=== PATIENT | female | born 1955 | race Caucasian/White ===

== ENCOUNTER 2023-04-18 13:28 | Outpatient (CLI) | payer OTHER, SELFPAY ==
--- OUTSIDE RECORDS SUMMARY | 2023-04-18 13:31 | XMS_ITS | Continuity of Care Document ---
Author Name Unknown Organization Z [facility] [place] Address [address] [place] [address] Phone Care Team Providers Care Political Aide Name Role Phone Unavailable Unavailable Unavailable Allergies, Adverse Reactions, Alerts Substance Reaction Status Criticality No Known allergies Medications Medication Instructions Dosage Effective Dates (start - stop) Status Comments TIROSINT (unknown strength) Not Available - Active ATENOLOL (unknown strength) Not Available - Active GABAPENTIN (unknown strength) Not Available - Active OXYCODONE HCL (unknown strength) Not Available - Active ALEVE (unknown strength) Not Available - Active Procedures Procedure Date Office/Outpatient Visit,[facility] 2012 X-Ray Exam Lower Spine 2-3 Views 2012 Advance Directives Directive Yes / No Effective Date File Name No Information Encounters Encounter Description Practice Location Reason(s) For Visit Diagnoses Date Provider Providers Copied on Encounter Z [facility], [address] [place] [address], [address], tel:[phone] [facility] [place] No Information 3 No Information Z [facility] [place], [address] [place] [address], [address], tel:[phone] [facility] Hypertension , Unspecified 3 Jose Gregorio. [address] [place] [address], [id number], [place]. tel:[phone] Office/Outpa tient Visit,[facility] Z [facility], [address] [place] [address], [address], tel:[phone] [facility] [place] No Information 3 Mehbod Kristenr. [facility], [address], [place], [place], [id number], [place]. tel:[phone] Referring Provider: Kali Ponce [facility] [address] [facility], [place], [address]. tel:[phone] Family History Family Member Type Diagnosis Age At Onset No Information Payers Payer name Insurance type Covered alliance party ID Authoriza tion(s) [employer] [id number] [facility] [id number] [facility] [id number] Social History Type Description Quantity Date Captured Comments Sex Female Smoking Status No Information Chief Complaint And Reason For Visit No Information Reason For Referral Reason For Referral No Information History Of Present Illness Encounter Date Complaint History Of Prese nt Illness No Information Functional Status Date Functional Assessmen t No Information Instructions Date Instruction Additional Infor mation No Information Assessments Type Assessment Date No Information Patient Care Teams Name Effective Dates (start - stop) Status Members No Information
--- NOTE | 2023-04-18 13:40 | CRLHL7_ITS ---
For Patients: As a result of the Cures Act, medical imaging exams and procedure reports are released immediately into your electronic medical record. You may view this report before your referring provider. If you have questions, please contact your health care provider. BILATERAL SCREENING MAMMOGRAM WITH COMPUTER-AIDED DETECTION AND TOMOSYNTHESIS TECHNIQUE: CC and MLO views were obtained. These mammographic images have been obtained using full-field digital technique. These mammographic images were interpreted with the benefit of computer-aided detection. Breast Tomosynthesis was used in this interpretation. COMPARISON FILM: 01/06/22, 07/07/20, 05/20/19. FINDINGS: There are scattered areas of fibroglandular density IMPRESSION: There is no radiographic evidence for malignancy. ASSESSMENT: BI-RADS Category 1: Negative RECOMMENDATION: Routine screening mammogram in 1 year. A lay language report of this examination will be provided to the patient. Fito Gibson M.D. Diagnostic Radiologist [email or web address] LARA/[email or web address] Transcribed: 3:05 p.jess meeks/Dictated by: Fito Gibson MD @ 04/19/2023 11:34:00 AM (Electronically Signed)
== END 2023-04-18 13:29 | disposition home or self-care (01) ==
LOC: MAMMO 13:29
PROVIDERS: PCP Family Medicine; Visit Provider Family Medicine
DX: Z12.31 Encounter for screening mammogram for malignant neoplasm of breast (principal)
CPT/HCPCS: 77063; 77067

== ENCOUNTER 2024-05-21 07:20 | Outpatient (CLI) | payer OTHER, SELFPAY ==
--- OUTSIDE RECORDS SUMMARY | 2024-05-24 06:00 | XMS_ITS | Clinical Summary ---
Author Organization [facility] Address [place], [place] [address] Care Team Providers Care Drying Rack Changer Name Role Phone Higinio Solano MD Primary Care Provide r Allergies No known active allergies Medications Medication Sig Dispensed Refills Start Date End Date Status atenolol (TENORMIN) 25 mg tablet Take 1 tablet by mouth once daily. 0 10/17/2012 Active levothyroxine (LEVOTHROID) 75 mcg tablet Take 1 tablet by mouth once daily. 0 07/18/2014 Active NYSTOP powder Apply 1 Applicator topically to affected area(s) 2 times daily if needed. 0 01/27/2017 Active traMADol (ULTRAM) 50 mg tablet Take 1 tablet by mouth 3 times daily if needed. 0 02/08/2017 Active cholecalciferol (VITAMIN D-3) 2,000 unit capsule Take 1 capsule by mouth once daily. 0 03/16/2017 Active ascorbic acid, vitamin C, (VITAMIN C) 500 mg tablet Take 1 tablet by mouth once daily. 0 03/16/2017 Active calcium carbonate-vitamin D3, 600 mg-125 unit, (CALCIUM 600 + D) tablet Take 1 tablet by mouth 2 times daily with meals. 0 03/16/2017 Active gabapentin (NEURONTIN) 300 mg capsuleIndications: Lumbar radicular pain Take 1 capsule by mouth at bedtime. 30 capsule 3 03/16/2017 Active ibuprofen (ADVIL; MOTRIN) 800 mg tablet 05/26/2020 Active valACYclovir (VALTREX) 1 gram tablet 05/26/2020 Active Active Problems Problem Noted Date Diagnosed Date Hypothyroidism (acquired) 06/10/2016 Paroxysmal SVT (supraventricular tachycardia) S/P Discectomy L5-S1 12/02/2009 Chronic Lumbar Pain 12/02/2009 Lumbar Radiculopathy 12/02/2009 Degeneration of lumbar or lumbosacral interverte bral disc 05/01/2008 Resolved Problems Problem Noted Date Diagnosed Date Resolved Date Hypothyroidism (acquired) 06/10/2016 Paroxysmal SVT (supraventricular tachycardia) 06/10/20 16 03/16/2017 Social History Tobacco Use Types Packs/Day Years Used Date Smoking Tobacco: Never Smokeless Tobacco: Never Tobacco Cessation:Counseling Given: Yes Alcohol Use Standard Drinks/Week Comments Yes 0 (1 standard drink = 0.6 oz pure alcohol) Special occasions (noted 03/16/2017) Social Connections Answer Date Recorded Frequency of Communication with Friends and Fami ly Not on file 09/25/2021 Financial Resource Strain Answer Date R ecorded Difficulty of Paying Living Expenses Not on file 09/25/2021 Difficulty of Paying Living Expenses Not on file 09/25/2021 Sex and Gender Information Value Date Recorded Sex Assigned at Not on file Gender Identity Not on file Sexual Orientation Not on file Obstetrics History Last Filed Vital Signs Vital Sign Reading Time Taken Comments Blood Pressure 170/81 06/11/2020 9:27 AM CDT Pulse 58 06/11/2020 9:27 AM CDT Temperature 36.8 ??C (98.2 ??F) 06/11/2020 9:27 AM CD T Respiratory Rate - - Oxygen Saturation 99% 06/11/2020 9:27 AM CDT Inhaled Oxygen Concentration - - Weight 117.9 kg (260 lb) 06/11/2020 9:27 AM CDT Height 168.9 cm (5' 6.5) 06/10/2016 10:05 AM CD T Body Mass Index 41.34 06/10/2016 10:05 AM CDT Plan of Treatment Health Maintenance Due Date Last Done Comments Tdap 1967 Tetanus booster 1976 Colonoscopy through age 75 2001 Lipids for age 45-75 2001 Mammogram for age 45-75 2001 Zoster (shingles) series for age 50+ (1 of 2) 2006 BMI (ht and wt on same day) for age 18+ 06/10/2017 0 06/10/2016 Depression screening for age 12+ 06/10/2017 06/10/20 16 DEXA/DXA scan for age 65+ 2021 Pneumococcal series for age 65+ (1 of 1 - PCV) 2021 COVID-19 vaccine series (2022-24 season) 2023 Influenza for age 65+ 05/26/2024 Hepatitis C screening for age 18-79 Completed 07/13, 06/10/2016 Procedures Procedure Name Priority Date/Time Associated Diagnosis Comments ANTI HCV Routine 07/13/2016 2:08 PM CDT Needle stick injury of finger, initial encounter from Last 3 Months or Most Recently Relevant to Health Maintenance Results * ANTI HCV (07/13/2016 2:08 PM CDT) HEPATITIS C ANTIBODY Non-Reacti ve Non-Reacti ve 07/13/2016 9:50 PM CDT [facility] Blood BLOOD SPECIMEN / Unknown Venipuncture / Unknown 07/13/2016 2:08 PM CDT 07/13/2016 3:16 PM CDT Narrative [facility] - 07/13/2016 9:50 PM CDT Antibodies to HCV not detected; does not exclude the possibility of exposure to HCV. Robbin Ewing MD SEND OUTS [facility] [address] [place] [address], from Last 3 Months or Most Recently Relevant to Health Maintenance Care Teams Drying Rack Changer Relationship Specialty Start Date End Date Higinio Solano MD [address] [place] [address] PCP - General Emergency Medicine 06/26/18
== END 2024-05-21 07:21 | disposition home or self-care (01) ==
LOC: NFLDREF 05-24 05:58
PROVIDERS: PCP Family Medicine; Referring Provider Family Medicine; Visit Provider Family Medicine
DX: E03.9 Hypothyroidism, unspecified (principal); R73.03 Prediabetes; E55.9 Vitamin D deficiency, unspecified; I10 Essential (primary) hypertension; E78.5 Hyperlipidemia, unspecified; E66.9 Obesity, unspecified; M81.0 Age-related osteoporosis without current pathological fracture; R74.8 Abnormal levels of other serum enzymes; E11.69 Type 2 diabetes mellitus with other specified complication; Z79.1 Long term (current) use of non-steroidal anti-inflammatories (NSAID); Z11.59 Encounter for screening for other viral diseases
CPT/HCPCS: 80053; 80061; 82306; 82728; 82977; 84443; 86803; 87340

== ENCOUNTER 2024-06-04 08:04 | Outpatient (CLI) | payer OTHER, SELFPAY ==
--- OUTSIDE RECORDS SUMMARY | 2024-06-04 08:07 | XMS_ITS | Continuity of Care Document ---
Author Organization Z [facility] [place] Address [address] [place] [address] Phone Care Team Providers Care Director Product Safety Name Role Phone Unavailable Unavailable Unavailable Allergies, [...] Available - Active Procedures Procedure Date Office/Outpatient Visit,[facility] 2012 X-Ray Exam Lower Spine 2-3 Views 2012 Advance Directives Directive Yes / No Effective Date File Name No Information Encounters Encounter Description Practice Location Reason(s) For Visit Diagnoses Date Provider Providers Copied on Encounter Z [facility], [address] [place] [address], [address], tel:[phone] [place] No Information 3 No Information Z [facility] [place], [address] [place] [address], [facility], tel:[phone] [facility] Hypertension , Unspecified 3 Jose Gregorio. [facility] [address] [place] [address], [id number], [place]. tel:[phone] Office/Outpa tient Visit,[facility] Z [facility], [address] [place] [address], [facility], tel:[phone] [facility] No Information 3 Mehbod Amir. [facility], [address] [place] [address] [address], [place], [place], [id number], [place]. tel:[phone] Referring Provider: Kali Dorantes, [address] [place], [place], [address]. tel:[phone] Family History Family Member Type Diagnosis Age At Onset No Information Payers Payer name Insurance type Covered constitution party ID Authoriza tion(s) [employer] [id number] [facility] [id number] [facility] [id number] Social History Type Description Quantity Date Captured [...]
--- OUTSIDE RECORDS SUMMARY | 2024-06-04 08:07 | XMS_ITS | Clinical Summary ---
Author Organization [facility] Address [place], [place] [address] Care Team Providers Care Second Worker Name Role Phone Higinio Solano MD Primary [...] 1 - PCV) 2021 COVID-19 vaccine series ( - 2022-24 season) 2024 Influenza for age 65+ 05/26/2024 Hepatitis C [...] ve Non-Reacti ve 07/13/2016 9:50 PM CDT [facility] TRAL LABORATORY Blood BLOOD SPECIMEN / Unknown Venipuncture / Unknown 07/13/2016 2:08 PM CDT 07/13/2016 3:16 PM CDT Narrative [facility] - 07/13/2016 9:50 PM CDT Antibodies to HCV not detected; does not exclude the possibility of exposure to HCV. Robbin Ewing MD SEND OUTS [facility] [address] [place] [address], from Last 3 Months or Most Recently Relevant to Health Maintenance Care Teams Second Worker Relationship Specialty Start Date End Date Higinio Solano MD [address] [place] [address] PCP - General Emergency Medicine 06/26/18
--- NOTE | 2024-06-04 08:15 | CRLHL7_ITS ---
For Patients: As a result of the Century Cures Act, medical imaging exams and procedure reports are released immediately into your electronic medical record. You may view this report before your referring provider. If you have questions, please contact your health care provider. INDICATION: abnormal serum enzymes COMPARISON: none TECHNIQUE: Real time quiroz scale imaging and color Doppler analysis was performed of the right upper quadrant. FINDINGS: The liver is diffusely echogenic. The liver measures 19.0 cm. No intrahepatic mass. Antegrade flow within the main portal vein. There is a normal appearance of the hepatic IVC and proximal abdominal aorta. There is no evidence of ascites. The gallbladder is of normal size and there is no evidence of intraluminal stones or sludge. The gallbladder wall measures 2.9 mm in thickness. The common bile duct is of normal size and measures 4.9 mm in diameter at the level of the cathi hepatis. The pancreas appears normal. There is no evidence of a stone or hydronephrosis within the right kidney. The right kidney measures 12.0 cm in length. IMPRESSION: Hepatomegaly with diffuse hepatic steatosis. Remainder unremarkable. Dictated by Fito Gibson MD @ 06/04/2024 9:37:12 AM (Electronically Signed)
== END 2024-06-04 08:05 | disposition home or self-care (01) ==
LOC: US 08:05
PROVIDERS: PCP Family Medicine; Visit Provider Family Medicine
DX: R74.8 Abnormal levels of other serum enzymes (principal); K76.0 Fatty (change of) liver, not elsewhere classified
CPT/HCPCS: 76705

== ENCOUNTER 2024-07-29 14:49 | Outpatient (CLI) | payer OTHER, SELFPAY ==
--- OUTSIDE RECORDS SUMMARY | 2024-07-29 14:51 | XMS_ITS | Continuity of Care Document ---
Author Organization Z [facility] [place] Address [address] [place] [address] Phone Care Team Providers Care Head Of It Name Role Phone Unavailable Unavailable Unavailable Allergies, [...] Available - Active Procedures Procedure Date Office/Outpatient Visit,[facility] 2012 X-Ray Exam Lower Spine 2-3 Views 2012 Advance Directives Directive Yes / No Effective Date File Name No Information Encounters Encounter Description Practice Location Reason(s) For Visit Diagnoses Date Provider Providers Copied on Encounter Z [facility], [address] [place] [address], [address], tel:[phone] [employer] No Information 3 No Information Z [facility] [place], [address] [place] [address], [facility], tel:[phone] [facility] Hypertension , Unspecified 3 Jose Gregorio. [facility] [address] [place] [address], [id number], [place]. tel:[phone] Office/Outpa tient Visit,[facility] Z [facility], [address] [place] [address], [facility], tel:[phone] [facility] No Information 3 Mehbod Amir. [facility], [address] [place] [address] [address], [place], [place], [id number], [place]. tel:[phone] Referring Provider: Kali Dorantes, [address] [place], [place], [address]. tel:[phone] Family History Family Member Type Diagnosis Age At Onset No Information Payers Payer name Insurance type Covered alliance party ID Authoriza tion(s) [employer] [id number] [facility] [id number] [facility] [id number] Social History Type Description Quantity Date Captured [...]
--- OUTSIDE RECORDS SUMMARY | 2024-07-29 14:51 | XMS_ITS | Clinical Summary ---
Author Organization [facility] Address [place], [place] [address] Care Team Providers Care Featherer Name Role Phone Higinio Solano MD Primary [...] 1 - PCV) 2021 COVID-19 vaccine series (2023-25 season) 2024 Influenza for age 65+ 05/26/2024 [...] ve Non-Reacti ve 07/13/2016 9:50 PM CDT [facility] TRAL LABORATORY Blood BLOOD SPECIMEN / Unknown Venipuncture / Unknown 07/13/2016 2:08 PM CDT 07/13/2016 3:16 PM CDT Narrative [facility] - 07/13/2016 9:50 PM CDT Antibodies to HCV not detected; does not exclude the possibility of exposure to HCV. Robbin Ewing MD SEND OUTS [facility] [address] [place] [address], from Last 3 Months or Most Recently Relevant to Health Maintenance Care Teams Featherer Relationship Specialty Start Date End Date Higinio Solano MD [address] [place] [address] PCP - General Emergency Medicine 06/26/18
--- NOTE | 2024-07-29 15:00 | CRLHL7_ITS ---
For Patients: As a result of the Century Cures Act, medical imaging exams and procedure reports are released immediately into your electronic medical record. You may view this report before your referring provider. If you have questions, please contact your health care provider. BILATERAL SCREENING MAMMOGRAM WITH COMPUTER-AIDED DETECTION AND TOMOSYNTHESIS TECHNIQUE: CC and MLO views were obtained. These mammographic images have been obtained using full-field digital technique. These mammographic images were interpreted with the benefit of computer-aided detection. Breast Tomosynthesis was used in this interpretation. COMPARISON FILM: 04/18/23, 01/06/22, 07/07/20. FINDINGS: There are scattered areas of fibroglandular density. IMPRESSION: There is no radiographic evidence for malignancy. ASSESSMENT: BI-RADS Category 1: Negative RECOMMENDATION: Routine screening mammogram in 1 year. A lay language report of this examination will be provided to the patient. Higinio Crockett M.D. Diagnostic/Nuclear Medicine Radiologist [email or web address] SP/Dictated by: Higinio Crockett MD @ 07/31/2024 12:08:00 PM (Electronically Signed)
== END 2024-07-29 14:50 | disposition home or self-care (01) ==
LOC: MAMMO 14:50
PROVIDERS: PCP Family Medicine; Visit Provider Family Medicine
DX: Z12.31 Encounter for screening mammogram for malignant neoplasm of breast (principal)
CPT/HCPCS: 77063; 77067

== ENCOUNTER 2024-08-02 09:51 | Outpatient (CLI) | payer OTHER, SELFPAY ==
--- OUTSIDE RECORDS SUMMARY | 2024-08-02 09:55 | XMS_ITS | Clinical Summary ---
Author Organization [facility] [facility] Address [place], [place] [address] Care Team Providers Care Mutual Fund Manager Name Role Phone Higinio Solano MD Primary [...] ve Non-Reacti ve 07/13/2016 9:50 PM CDT [facility] TR[facility] LAB[facility]ATORY Blood BLOOD SPECIMEN / Unknown Venipuncture / Unknown 07/13/2016 2:08 PM CDT 07/13/2016 3:16 PM CDT Narrative [facility] - 07/13/2016 9:50 PM CDT Antibodies to HCV not detected; does not exclude the possibility of exposure to HCV. Robbin Ewing MD SEND OUTS [facility] [address] [place] [address], from Last 3 Months or Most Recently Relevant to Health Maintenance Care Teams Mutual Fund Manager Relationship Specialty Start Date End Date Higinio Solano MD [address] [place] [address] PCP - General Emergency Medicine 06/26/18
--- OUTSIDE RECORDS SUMMARY | 2024-08-02 09:55 | XMS_ITS | Continuity of Care Document ---
Author Organization Z [facility] [place] Address [address] [place] [address] Phone Care Team Providers Care Housekeeping Coordinator Name Role Phone Unavailable Unavailable Unavailable Allergies, Adverse Reactions, Alerts Substance Reaction Status Criticality No Known allergies Medications Medication Instructions Dosage Effective Dates (start - stop) Status Comments ALEVE (unknown strength) Not Available - Active OXYCODONE HCL (unknown strength) Not Available - Active GABAPENTIN (unknown strength) Not Available - Active ATENOLOL (unknown strength) Not Available - Active TIROSINT (unknown strength) Not Available - Active Procedures Procedure Date Office/Outpatient Visit,[facility] 2012 X-Ray Exam Lower Spine 2-3 Views 2012 Advance Directives Directive Yes / No Effective Date File Name No Information Encounters Encounter Description Practice Location Reason(s) For Visit Diagnoses Date Provider Providers Copied on Encounter Z [facility], [address] [place] [address], [address], tel:[phone] [place] No Information 3 No Information Z [facility] [place], [address] [place] [address], [facility], tel:[phone] [facility] Hypertension , Unspecified 3 Jose Gregorio. [facility] [address] [place] [address], [id number], [place]. tel:[phone] Office/Outpa tient Visit,[facility] Z [facility], [address] [place] [address], [facility], tel:[phone] [facility] No Information 3 Mehbod Amir. [facility], [address] [place] [address] [address], [place], [place], [id number], [place]. tel:[phone] Referring Provider: Kali Dorantes, [address] [place], [place], [address]. tel:[phone] Family History Family Member Type Diagnosis Age At Onset No Information Payers Payer name Insurance type Covered green party ID Authoriza tion(s) [employer] [id number] [facility] [address] [facility] [id number] Social History Type Description Quantity Date Captured [...]
--- NOTE | 2024-08-02 10:15 | CRLHL7_ITS ---
For Patients: As a result of the Century Cures Act, medical imaging exams and procedure reports are released immediately into your electronic medical record. You may view this report before your referring provider. If you have questions, please contact your health care provider. INDICATION: Hearing loss. COMPARISON: None. TECHNIQUE: Multiplanar T1, T2, FLAIR and diffusion-weighted imaging. Post gadolinium T1 weighted sequences. Additional pre and post given sequences of the skullbase and IAC`s. FINDINGS: Normal brain parenchymal morphology. Scattered punctate foci of T2/FLAIR signal hyperintensity within the white matter of the left frontal lobe which may be secondary to chronic deep white matter small vessel ischemic changes or sequela migraine headache. No intracranial hemorrhage. No abnormal ventricular dilatation. Intracranial vascular flow voids are preserved. No mass effect. No midline shift. No restricted diffusion to suggest acute ischemia. No abnormal enhancement or enhancing lesions within the brain parenchyma. Dedicated imaging of the skullbase and IAC`s demonstrates an enhancing mass of the right cerebellopontine angle extending into the fundus of the right IAC measuring 1.9 x 1 cm (series 11, image 13) consistent with a vestibular schwannoma. Normal course of the cranial nerves 7 and 8 on the left. No abnormal mass or enhancement within the remainder of the cerebellopontine angles or left IAC. Bilateral orbits are unremarkable. Normal appearing sella. Visualized paranasal sinuses and mastoid air cells are unremarkable. IMPRESSION: 1. Enhancing mass of the right cerebellar pontine angle extending into the right IAC fundus consistent with a vestibular schwannoma 2. No abnormal enhancement elsewhere. 3. No acute intracranial abnormality Dictated by Sanjeev Mehta MD @ 08/04/2024 4:02:52 PM (Electronically Signed)
== END 2024-08-02 09:52 | disposition home or self-care (01) ==
LOC: MRI 09:52
PROVIDERS: PCP Family Medicine; Visit Provider Otolaryngology
DX: H91.8X3 Other specified hearing loss, bilateral (principal); R22.0 Localized swelling, mass and lump, head
CPT/HCPCS: 70553; A9575

== ENCOUNTER 2024-08-12 08:22 | Outpatient (CLI) | payer OTHER, SELFPAY ==
--- OUTSIDE RECORDS SUMMARY | 2024-08-14 13:47 | XMS_ITS | Clinical Summary ---
Author Organization [facility] Address [place], [place] [address] Care Team Providers Care Morning Nanny Name Role Phone Higinio Solano MD Primary [...] ve Non-Reacti ve 07/13/2016 9:50 PM CDT [facility] Blood BLOOD SPECIMEN / Unknown Venipuncture / Unknown 07/13/2016 2:08 PM CDT 07/13/2016 3:16 PM CDT Narrative [facility] - 07/13/2016 9:50 PM CDT Antibodies to HCV not detected; does not exclude the possibility of exposure to HCV. Robbin Ewing MD SEND OUTS [facility] [address] [place] [address], from Last 3 Months or Most Recently Relevant to Health Maintenance Care Teams Morning Nanny Relationship Specialty Start Date End Date Higinio Solano MD [address] [place] [address] PCP - General Emergency Medicine 06/26/18
--- OUTSIDE RECORDS SUMMARY | 2024-08-14 13:47 | XMS_ITS | Continuity of Care Document ---
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 Name Role Phone Unavailable Unavailable Unavailable Allergies, [...] Available - Active Procedures Procedure Date Office/Outpatient Visit,[facility] 2012 X-Ray Exam Lower Spine 2-3 Views 2012 Advance Directives Directive Yes / No Effective Date File Name No Information Encounters Encounter Description Practice Location Reason(s) For Visit Diagnoses Date Provider Providers Copied on Encounter Z [facility], [address] [place] [address], [address], tel:[phone] [facility] No Information 3 No Information Z [facility], [address] [place] [address], [facility], tel:[phone] [facility] Hypertension , Unspecified 3 Jose Gregorio. [facility] [address] [place] [address], [id number], [place]. tel:[phone] Office/Outpa tient Visit,[facility], [address] [place] [address], [facility], tel:[phone] [facility] No Information 3 Mehbod Amir. [facility], [address] [place] [address] [address], [place], [place], [id number], [place]. tel:[phone] Referring Provider: Kali Dorantes, [address] [place], [place], [address]. tel:[phone] Family History Family Member Type Diagnosis Age At Onset No Information Payers Payer name Insurance type Covered libertarian ID Authoriza tion(s) [employer] [id number] [facility] [id number] [facility] [id number] Social History Type Description Quantity Date Captured [...]
== END 2024-08-12 08:23 | disposition home or self-care (01) ==
LOC: NFLDREF 08-14 13:45
PROVIDERS: PCP Family Medicine; Referring Provider Family Medicine; Visit Provider Family Medicine
DX: E11.69 Type 2 diabetes mellitus with other specified complication (principal); E66.9 Obesity, unspecified; R73.03 Prediabetes; I10 Essential (primary) hypertension; Z79.1 Long term (current) use of non-steroidal anti-inflammatories (NSAID)
CPT/HCPCS: 80053; 82043; 82570

== ENCOUNTER 2024-08-12 21:46 | Emergency (ER) | payer OTHER, SELFPAY ==
[2024-08-12 21:48] VITALS: BP 226/90; PULSE 61; RESP 18; TEMP 36.3; O2SAT 95; BMI 38.7
[2024-08-12 22:32] LABS: Appearance Urine Clear (Clear); Bilirubin Urine Negative (Negative); Blood Urine 1+ (Negative); Color Urine Yellow (Yellow); Glucose Urine Negative (Negative); Ketones Urine Trace (Negative); Leukocyte Esterase Urine Negative (Negative); Nitrite Urine Negative (Negative); Protein Urine Negative (Negative); Urobilinogen Urine 0.2 (0.2-1.0)
--- OUTSIDE RECORDS SUMMARY | 2024-08-12 22:36 | XMS_ITS | Clinical Summary ---
Author Organization [facility] Address [place], [place] [address] Care Team Providers Care Merchant Banker Name Role Phone Higinio Solano MD Primary [...] 58 06/11/2020 9:27 AM CDT Temperature 36.8 C (98.2 F) 06/11/2020 9:27 AM CDT Respiratory Rate - - Oxygen Saturation 99% [...] 1 - PCV) 2021 COVID-19 vaccine series (2023- season) 2024 Influenza for age 65+ 05/26/2024 [...] ve Non-Reacti ve 07/13/2016 9:50 PM CDT [facility] LABORATORY Blood BLOOD SPECIMEN / Unknown Venipuncture / Unknown 07/13/2016 2:08 PM CDT 07/13/2016 3:16 PM CDT Narrative [facility] - 07/13/2016 9:50 PM CDT Antibodies to HCV not detected; does not exclude the possibility of exposure to HCV. Robbin Ewing MD SEND OUTS [facility] [address] [place] [address], from Last 3 Months or Most Recently Relevant to Health Maintenance Care Teams Merchant Banker Relationship Specialty Start Date End Date Higinio Solano MD [address] [place] [address] PCP - General Emergency Medicine 06/26/18
--- OUTSIDE RECORDS SUMMARY | 2024-08-12 22:36 | XMS_ITS | Continuity of Care Document ---
Author Organization Z [facility] Address [address] [place] [address] Phone Care Team Providers Care Coater Smoking Pipe Name Role Phone Unavailable Unavailable Unavailable Allergies, [...] Available - Active Procedures Procedure Date Office/Outpatient Visit,[facility] 2012 X-Ray Exam Lower Spine 2-3 Views 2012 Advance Directives Directive Yes / No Effective Date File Name No Information Encounters Encounter Description Practice Location Reason(s) For Visit Diagnoses Date Provider Providers Copied on Encounter [facility], [address] [place] [address], [address], tel:[phone] [facility] No Information 3 No Information Z [facility], [address] [place] [address], [facility], tel:[phone] [facility] Hypertension , Unspecified 3 Jose Gregorio. [facility] [address] [place] [address], [id number], [place]. tel:[phone] Office/Outpa tient Visit,[facility], [address] [place] [address], [facility], tel:[phone] [facility] No Information 3 Mehbod Amir. [facility], [address] [place] [address] [address], [place], [place], [id number], [place]. tel:[phone] Referring Provider: Kali Dorantes, [address] [place], [place], [address]. tel:[phone] Family History Family Member Type Diagnosis Age At Onset No Information Payers Payer name Insurance type Covered democrat ID Authoriza tion(s) [employer] [id number] [facility] [id number] [facility] [id number] Social History Type Description Quantity Date Captured [...]
[2024-08-12 22:38] LABS: Lactate* 0.9 mmol/L (0.5-1.9)
[2024-08-12 22:46] LABS: WBC Urine 0-2 (0-5)
[2024-08-12 22:47] LABS: Amorphous Sediment Urine Few; Squamous Epithelial Cell Urine Many (None-Few)
[2024-08-12 22:49] LABS: Basophils Absolute Auto 0.03 K/uL (0.00-0.30); Basophils Percent Auto 0.3 % (0.0-3.0); Eosinophils Absolute Auto 0.07 K/uL (0.00-0.50); Eosinophils Percent Auto 0.7 % (0.0-7.0); Hematocrit 42.4 % (33.0-51.0); Hemoglobin* 13.5 gm/dL (12.0-16.0); Immature Granulocytes Abs Auto 0.01 K/uL (0.00-0.30); Immature Granulocytes Pct Auto 0.1 %; Lymphocytes Percent Auto 8.8 % (20-44); Mean Corpuscular HGB Conc 32 gm/dL (32-36); Mean Corpuscular Hemoglobin 29 pg (26-34); Mean Corpuscular Volume 91 fL (80-100); Monocytes Percent Auto 6.3 % (0.0-11.0); Neutrophils Percent Auto 83.8 % (42.0-72.0); Platelet Count* 175 K/uL (140-440); RDW Coefficient of Variation % 13.8 % (11.5-15.5); Red Blood Count 4.65 m/uL (4.00-5.20); White Blood Count* 9.74 K/uL (4.50-11.00)
--- NOTE | 2024-08-12 22:55 | CRLHL7_ITS ---
For Patients: As a result of the Century Cures Act, medical imaging exams and procedure reports are released immediately into your electronic medical record. You may view this report before your referring provider. If you have questions, please contact your health care provider. INDICATION: Right lower quadrant pain. Concern for stone. TECHNIQUE: CT abdomen and pelvis without contrast. COMPARISON: None. FINDINGS: Lower chest: Scattered atelectasis. Liver: Normal in size and attenuation. No suspicious masses. Gallbladder and bile ducts: No stones or inflammation. No biliary dilatation. Pancreas: Unremarkable. No mass or inflammation. Spleen: Normal in size. No masses. Adrenal glands: Normal in size. No nodules. Kidneys: Moderate right-sided hydroureteronephrosis secondary to 4 millimeter obstructing right UPJ/proximal ureteral stone. Additional tiny nonobstructing right renal stones. GI tract: Colonic diverticulosis.. Normal in caliber. No sign of mass or inflammation. Normal appendix. Vasculature: Abdominal aorta is normal in caliber. Lymph nodes: No lymphadenopathy. Peritoneum/Abdominal Wall: Unremarkable. No sign of mass or infiltration. No free air or significant free fluid. Pelvis: Hysterectomy. No pelvic masses. Bones: Unremarkable for age. Other: Incomplete visualization of large right gluteal soft tissue cystic lesion, possibly hematoma in the setting of trauma. IMPRESSION: Moderate right-sided hydroureteronephrosis secondary to 4 millimeter obstructing right UPJ/proximal ureteral stone. Additional tiny nonobstructing right renal stones. Incomplete visualization of large right gluteal soft tissue cystic lesion, possibly hematoma in the setting of trauma. Please note that all CT scans at this facility use dose modulation, iterative reconstruction, and/or weight-based dosing when appropriate to reduce radiation dose to as low as reasonably achievable. Dictated by Alexandru Gaytan MD @ 08/12/2024 11:42:31 PM (Electronically Signed)
[2024-08-12 23:01] LABS: Albumin* 4.5 g/dL (3.3-5.0); Chloride* 99 mmol/L (96-114); Potassium* 3.5 mmol/L (3.6-5.1); Sodium* 139 mmol/L (135-149)
[2024-08-12] MEDS: KETOROLAC 15 MG/ML inj IVP (23:02)
[2024-08-12] MEDS: ONDANSETRON 2 MG/ML inj 4 MG IVP (23:02)
[2024-08-12 23:03] LABS: Creatinine* 0.9 mg/dL (0.5-1.5); Est. Creatinine Clearance* 51.11; Estimated Glomerular Filt Rate 70 ml/min
[2024-08-12 23:04] LABS: Alanine Aminotransferase* 25 U/L (4-35); Alkaline Phosphatase* 57 U/L (40-150); Anion Gap 10 mEq/L (7-15); Aspartate Amino Transferase* 31 U/L (12-35); Bilirubin Total* 0.5 mg/dL (0.1-1.5); Blood Urea Nitrogen* 15 mg/dL (7-30); Carbon Dioxide* 30 mmol/L (20-32); Lipase* 61 U/L (23-300); Total Protein* 7.3 g/dL (6.0-8.3)
[2024-08-12 23:05] LABS: Calcium* 9.5 mg/dL (8.4-10.6); Glucose* 146 mg/dL (60-115)
[2024-08-12 23:07] LABS: C Reactive Protein* 1.1 mg/dL (0.5-1.0)
--- NOTE | 2024-08-12 23:11 | ED_ITS ---
HPI - General Adult General Chief complaint: Abdominal Pain Stated complaint: vomiting, stomach pain Time Seen by Provider: 08/12/24 21:57 Source: patient Mode of arrival: ambulatory Limitations: no limitations History of Present Illness HPI narrative: 68-year-old female presents the emergency department with right flank pain radiating into the right inguinal region. No prior history of similar symptoms. She had a fall 3 weeks ago and has had some mild swelling of her left elbow and right outer hip stents but states that the pain is different and seems unrelated. She vomited 6 times this evening. No prior history of kidney stones. No dysuria, no hematuria. No lower GI symptoms like diarrhea or bloody stools. She does have a history of a prior hysterectomy for heavy periods but no other abdominal surgeries reported. Has not tried any medications to help with her pain. Pain is low-grade and constant but also comes and very sharp waves. I sharp waves tend to bring on the vomiting. Past medical history notable for type 2 diabetes. Reports excellent A1c improvement on metformin. Reports that her only home medications are atenolol and levothyroxine and metformin. Denies history of hypertension or cardiac disease. No known drug allergies, nonsmoker. ROS is notable for the flank pain as described above as well as GI symptoms. Otherwise denies times 12 systems. Related Data Previous Rx's ?Medication ?Instructions ?Recorded nystatin 100,000 unit/gram topical 1 applic topical .2-3x per day #60 05/31/23 powder grams atenolol 25 mg tablet 25 mg PO QDAY #90 tabs 05/23/24 levothyroxine 75 mcg tablet 75 mcg PO DAILY #90 tabs 05/23/24 tramadol 50 mg tablet 50 mg PO QHS PRN pain #90 tabs 05/23/24 valacyclovir 1 gram tablet 2,000 mg (2 x 1 gram) PO BID PRN 05/23/24 cold sores #24 tabs lorazepam 0.5 mg tablet (Ativan) 0.5 - 1 mg (1 - 2 x 0.5 mg) PO 07/17/24 ONCE PRN anxiety #2 tabs cholecalciferol (vitamin D3) 125 125 mcg PO QDAY #90 caps 08/12/24 mcg (5,000 unit) capsule metformin 500 mg tablet,extended 500 mg PO QPM #90 tabs 08/12/24 release 24 hr tamsulosin 0.4 mg capsule (Flomax) 0.4 mg PO DAILY #10 caps 08/12/24 Allergies Allergy/AdvReac Type Severity Reaction Status Date / Time No Known Drug Allergies Allergy Verified 08/12/24 21:54 [facility] Medical History 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) ?K76.0 - Fatty (change of) liver, not elsewhere classified (ICD-10) Morbid obesity with BMI of 40.0-44.9, adult ?E66.01 - Morbid (severe) obesity due to excess calories (ICD-10) ?Z68.41 - Body mass index [BMI] 40.0-44.9, adult (ICD-10) Vitamin D deficiency ?E55.9 - Vitamin D deficiency, unspecified (ICD-10) Recurrent herpes labialis ?B00.1 - Herpesviral vesicular dermatitis (ICD-10) Prediabetes (05/2020) ?R73.03 - Prediabetes (ICD-10) Hypothyroidism ?E03.9 - Hypothyroidism, unspecified (ICD-10) Chronic low back pain ?M54.50 - Low back pain, unspecified (ICD-10) ?G89.29 - Other chronic pain (ICD-10) Hypertension ?I10 - Essential (primary) hypertension (ICD-10) Pericarditis (04/2018) ?I31.9 - Disease of pericardium, unspecified (ICD-10) Grief ?F43.21 - Adjustment disorder with depressed mood (ICD-10) Eczema ?L30.9 - Dermatitis, unspecified (ICD-10) Surgical History Hx of shoulder surgery (~06/2021) ?Z98.890 - Other specified postprocedural states (ICD-10) Status post wrist surgery (2014) ?Z98.890 - Other specified postprocedural states (ICD-10) History of total abdominal hysterectomy and bilateral salpingo-oophorectomy (2009) ?Z90.710 - Acquired absence of both cervix and uterus (ICD-10) ?Z90.722 - Acquired absence of ovaries, bilateral (ICD-10) ?Z90.79 - Acquired absence of other genital organ(s) (ICD-10) History of spinal surgery (2002) ?Z98.890 - Other specified postprocedural states (ICD-10) History of cardiac radiofrequency ablation (RFA) (2014) ?Z98.890 - Other specified postprocedural states (ICD-10) Family History Father Lymphoma, Onset Age: 81 Rheumatoid arthritis Mother Myocardial infarction, Onset Age: 82 Maternal Grandfather Stroke, Onset Age: 80 Brother High blood pressure Sister High blood pressure Social History Narrative: , 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 [employer], 3 adult children does not exercise nonsmoker rarely consumes alcohol What is your current living situation?: I presently have a place to live Problems where you live: no known problems In the past 12 months, utilities in danger of being shut off: no In the past 12 mos, have been you worried that your food would run out before you had money to buy more?: never true In the past 12 mos, the food you bought just didn't last and you didn't have money to buy more?: never true Smoking Status: Never smoker How often does anyone, including family, friends and others, physically hurt you : never How often does anyone, including family, friends and others, insult or talk down to you: never How often does anyone, including family, friends and others, threaten you with harm: never How often does anyone, including family, friends and others, scream or curse at you: never Exam Const: Vital Signs, click to edit/add: Vital Signs - 24 hr 08/12/24 21:48 08/12/24 23:41 Temperature 97.4 F L Pulse Rate 63 Pulse Rate [Pulse Oximeter] 61 Respiratory Rate 18 16 Blood Pressure 145/73 H Blood Pressure [Ri ght Upper Arm] 226/90 H Pulse Oximetry 95 94 Oxygen Delivery Me thod Room Air Room Air Documenting provider has reviewed patient's vital signs: yes Common normals: no apparent distress and alert General appearance: cooperative and well kempt HENMT: Common normals: normocephalic Head and scalp: normocephalic Mouth: oral and palatal mucosa normal Throat: posterior oropharynx normal Eye: Common normals: conjunctivae normal General eye: normal appearance of both eyes Conjunctiva: conjunctiva(e) normal Neck & C-Spine: General: normal visual inspection Resp: Common normals: normal respiratory effort, no use of accessory muscles and clear to auscultation bilaterally Effort & inspection: able to speak in complete sentences Auscultation: clear to auscultation bilaterally Cardio: Common normals: regular rate, regular rhythm, S1 normal heart sound, S2 normal heart sound and no murmurs Rate: regular rate Rhythm: regular rhythm Heart sounds: S1 normal and S2 normal GI: Common normals: Normal to inspection, nondistended, normoactive bowel sounds present, soft to palpation, non-tender, no hepatosplenomegaly and no masses Palpation: soft and no hepatosplenomegaly : Other: Positive right CVA tenderness. Back & Pelvis: Common normals: thoracic and lumbar spine normal to inspection and no thoracic nor lumbar tenderness Neuro: Common normals: moves all extremities Sensorium/orientation: alert Speech: speech normal Gait (neuro): steppage Motor exam: strength 5/5 throughout and no movement abnormalities noted Psych: Appearance: well kempt Attitude: engaged Mood and affect: euthymic mood Insight: fair Judgement: fair Skin: Common normals: no rashes or lesions noted General skin exam: no rashes or lesions noted Course Course ED Course: 68-year-old female with right flank pain suspicious for nephrolithiasis. Cannot exclude appendicitis, musculoskeletal etiology, colitis, urinary tract infection, shingles, amongst others. No skin findings. No abdominal tenderness. Will start with urinalysis. If positive, will proceed to CT of the abdomen and pelvis without contrast. Will give Toradol and Zofran for symptom control. Typical intra-abdominal labs. Await findings. Reevaluation(s) Time of Reevaluation #1: 23:47 Reevaluation #1: Patient feeling much better after the Toradol and Zofran. Counseled on CT findings. Several right-sided ureteral stones noted. All of which appear to be small enough to pass. Patient counseled on management. Prescriptions for Toradol, Zofran, Flomax and oxycodone given, use discussed. She will push fluids, move frequently. Strain her urine. Alarm symptoms of possible infection or complication were reviewed with her. Written instructions are provided. Vital Signs Vital signs: Initial Vital Signs Temperature 97.4 F L 08/12/24 21:48 Temperature Source Temporal Artery Scan 08/12/24 21:48 Pulse Rate 61 08/12/24 21:48 Respiratory Rate 18 08/12/24 21:48 Blood Pressure 226/90 H 08/12/24 21:48 Blood Pressure Mean 135 H 08/12/24 21:48 Blood Pressure Position Sitting 08/12/24 21:48 Pulse Oximetry 95 08/12/24 21:48 Oxygen Delivery Method Room Air 08/12/24 21:48 Vital Signs Temperature 97.4 F L 08/12/24 21:48 Pulse Rate 61 08/12/24 21:48 Respiratory Rate 18 08/12/24 21:48 Blood Pressure 226/90 H 08/12/24 21:48 Pulse Oximetry 95 08/12/24 21:48 Oxygen Delivery Method Room Air 08/12/24 21:48 Temperature 97.4 F L 08/12/24 21:48 Pulse Rate 63 08/12/24 23:41 Respiratory Rate 16 08/12/24 23:41 Blood Pressure 145/73 H 08/12/24 23:41 Pulse Oximetry 94 08/12/24 23:41 Oxygen Delivery Method Room Air 08/12/24 23:41 Medications Administered Medications: Discontinued Medications Generic Name Dose Route Start Last Admin Trade Name Freq PRN Reason Stop Dose Admin Ketorolac Tromethamine 15 mg 08/12/24 22:18 08/12/24 23:02 Ketorolac 15 Mg/Ml Inj IVP 08/12/24 22:19 15 mg ONCE ONE Administration Ondansetron HCl 4 mg 08/12/24 22:18 08/12/24 23:02 Ondansetron 2 Mg/Ml Inj IVP 08/12/24 22:19 4 mg ONCE ONE Administration Medical Decision Making Lab Data Lab results reviewed: Yes I reviewed the patient's lab results Lab results narrative: No significant leukocytosis. Good renal function. Normal liver enzymes, mildly elevated C-reactive protein. Urinalysis with blood but no signs of infection. Labs: Lab Results 08/12/24 08/12/24 Range/Units 21:57 22:31 WBC 9.74 (4.50-11.00) K/uL RBC 4.65 (4.00-5.20) m/uL Hgb 13.5 (12.0-16.0) gm/dL Hct 42.4 (33.0-51.0) % MCV 91 (80-100) fL MCH 29 (26-34) pg MCHC 32 (32-36) gm/dL RDW Coeff of [place] 13.8 (11.5-15.5) % Plt Count 175 (140-440) K/uL Neut % (Auto) 83.8 H (42.0-72.0) % Lymph % (Auto) 8.8 L (20-44) % [place] % (Auto) 6.3 (0.0-11.0) % Eos % (Auto) 0.7 (0.0-7.0) % Baso % (Auto) 0.3 (0.0-3.0) % Neut # (Auto) 8.20 H (1.7-7.0) K/uL Lymph # (Auto) 0.90 (0.90-2.90) K/uL [place] # (Auto) 0.60 (0.00-0.90) K/UL Eos # (Auto) 0.07 (0.00-0.50) K/uL Baso # (Auto) 0.03 (0.00-0.30) K/uL Abs Immat Gran (auto) 0.01 (0.00-0.30) K/uL Imm/Tot Granulo (auto) 0.1 % Sodium 139 (135-149) mmol/L Potassium 3.5 L (3.6-5.1) mmol/L Chloride 99 (96-114) mmol/L Carbon Dioxide 30 (20-32) mmol/L Anion Gap 10 (7-15) mEq/L BUN 15 (7-30) mg/dL Creatinine 0.9 (0.5-1.5) mg/dL Estimated Creat Clear 51.11 Estimated GFR 70 ml/min Glucose 146 H (60-115) mg/dL Lactate 0.9 (0.5-1.9) mmol/L Calcium 9.5 (8.4-10.6) mg/dL Total Bilirubin 0.5 (0.1-1.5) mg/dL AST 31 (12-35) U/L ALT 25 (4-35) U/L Alkaline Phosphatase 57 (40-150) U/L C-Reactive Protein 1.1 H (0.5-1.0) mg/dL Total Protein 7.3 (6.0-8.3) g/dL Albumin 4.5 (3.3-5.0) g/dL Lipase 61 (23-300) U/L Urine Color Yellow (Yellow) Urine Appearance Clear (Clear) Urine pH 7.0 (5.0-8.5) Ur Specific [place] 1.020 (1.000-1.030) Urine Protein Negative (Negative) Urine Glucose (UA) Negative (Negative) Urine Ketones Trace A (Negative) Urine Blood 1+ A (Negative) Urine Nitrite Negative (Negative) Urine Bilirubin Negative (Negative) Urine Urobilinogen 0.2 (0.2-1.0) Ur Leukocyte Esterase Negative (Negative) Urine RBC 5-10 A (0-2) Urine WBC 0-2 (0-5) Urine WBC Clumps None (None) Ur Squamous Epith Cells Many A (None-Few) Amorphous Sediment Few A (None) Urine Bacteria None (None) Imaging Data CT scan - abdomen: Attestation: I have reviewed the pertinent imaging results. My impression: Chain of right ureteral stones 3-4 mm each with moderate hydronephrosis Radiologist's impression: IMPRESSION: Moderate right-sided hydroureteronephrosis secondary to 4 millimeter obstructing right UPJ/proximal ureteral stone. Additional tiny nonobstructing right renal stones. Incomplete visualization of large right gluteal soft tissue cystic lesion, possibly hematoma in the setting of trauma. Please note that all CT scans at this facility use dose modulation, iterative reconstruction, and/or weight-based dosing when appropriate to reduce radiation dose to as low as reasonably achievable. Dictated by Alexandru Gaytan MD @ 08/12/2024 11:42:31 PM Discharge Plan Discharge Clinical Impression: Ureterolithiasis Patient Disposition: Home w/ Parent or Adult Condition: Improved Instructions: How to Strain Your Urine (ED), Ureteral Stones (ED) Additional Instructions: As we discussed, you actually have 3 small stones in your ureter. All of these are the proper size to pass on their own. They should not require surgery. To help them pass, it is important you drink lots of fluids and move frequently. For pain, I recommend Toradol 10 mg up to every 6 hours for the next few days. If you run out of this, you may switch to ibuprofen 600 mg every 6 hours but do not take both at the same time as they are somewhat similar medications and this can affect her stomach in kidneys. You may also use Tylenol 1000 mg every 6 hours in addition to either the Toradol or ibuprofen. I will also give you a very small supply of oxycodone to use if the pain is severe. Hopefully you do not need this. We have started him on Flomax, a medication that may help reduce the spasm in the ureter but may also help dilate it open and help the stone pass more easily. Continue taking this once daily until the stones passed. You may stop it early if the stones pass quickly. Infection is rare but can happen. If you start having high fever, persistent burning with urination, significant weakness or other signs of illness, please come back to the ER right away. No driving while on the oxycodone. Strain your urine since that you may more easily see when the stone passes. As discussed, you do have 2 more stones up in the kidney on the right side that are all small enough to pass as well. These may continue to grow over time and may never cause you any complications. Activity Level: No Restrictions Discharge Diet: Regular Prescriptions: New tamsulosin [Flomax] 0.4 mg capsule 0.4 mg PO DAILY Qty: 10 0RF Rx Instructions: To help kidney stone pass, may discontinue if stones pass No Action atenolol 25 mg tablet 25 mg PO QDAY Qty: 90 3RF levothyroxine 75 mcg tablet 75 mcg PO DAILY Qty: 90 3RF valacyclovir 1 gram tablet 2,000 mg PO BID PRN (Reason: cold sores) Qty: 24 0RF Rx Instructions: take 2 tab po x1, then 2 tab in 12 h, use as needed for cold sores tramadol 50 mg tablet 50 mg PO QHS PRN (Reason: pain) Qty: 90 0RF lorazepam [Ativan] 0.5 mg tablet 0.5 - 1 mg PO ONCE PRN (Reason: anxiety) Qty: 2 0RF Rx Instructions: 1-2 tabs by mouth 1 -1.5 hours prior to MRI test nystatin 100,000 unit/gram powder 1 applic topical .2-3x per day Qty: 60 0RF metformin 500 mg tablet extended release 24 hr 500 mg PO QPM Qty: 90 0RF cholecalciferol (vitamin D3) 125 mcg (5,000 unit) capsule 125 mcg PO QDAY Qty: 90 0RF Follow Up/Referrals: Elsa Huntley MD [Primary Care Provider] - Stand Alone Forms: [employer] Info Instructions
[2024-08-12 23:15] LABS: Slide Review Reflex No
[2024-08-12 23:41] VITALS: BP 145/73; PULSE 63; RESP 16; O2SAT 94
== END 2024-08-13 00:18 | disposition home or self-care (01) ==
PROVIDERS: Emergency Provider Family Medicine; PCP Family Medicine
DX: N20.1 Calculus of ureter (principal)
CPT/HCPCS: 36415; 74176; 80053; 81001; 81003; 83605; 83690; 85025; 86140; 96374; 96375; 99284; J1885; J2405

== ENCOUNTER 2024-10-24 10:09 | Outpatient (CLI) | payer MEDICARE, SELFPAY | END 2024-10-24 10:10 | disposition home or self-care (01) | PROVIDERS: PCP Family Medicine; Visit Provider Family Medicine | DX: M79.89 Other specified soft tissue disorders (principal); R22.9 Localized swelling, mass and lump, unspecified; S30.0XXA Contusion of lower back and pelvis, initial encounter | CPT/HCPCS: 76882 ==

== ENCOUNTER 2024-10-28 08:00 | Outpatient (RCR) | payer MEDICARE, SELFPAY ==
--- NOTE | 2024-09-27 16:49 | OT.OPOE ---
OT Outpatient Ortho Eval OT Outpatient Ortho Eval* Start: 09/27/24 12:15 Freq: Status: Active Protocol: Document 09/27/24 12:17 LCN (Rec: 09/27/24 12:26 LCN [id number]) E-signed By Kathe Burgess, OTR/L, CLT OT OP Ortho Eval Details Complexity Complexity Low Insurance Information Insurance Information Medicare B Insurance Information Comments [employer] Gold Choice. Outpatient History/Precautions Current Condition/Medical Diagnosis Referring Provider Dr. Huntley Medical Diagnoses L elbow pain Treatment Diagnosis L elbow stiffness, edema and weakness. 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 Same day as losing her mother to rapid 2 week bout of pancreatic cancer . 3 kidney stones found . Affected by hypothyroidism, fatty liver changes, didi min D deficiency, chronic low back pain and pericarditis. PMHX includes spinal surgery 2001. hysterectomy 2009, ablation 2014, R wrist fracture with 3 surgeries/ ulnar resection with hardware and lots of rehab 2014. R shoulder surgery Jun 2021. Medical/Functional History Medical History Reviewed Yes Prior Level of Function/Mobility Pt lives alone in [address] home. 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 Has 3 grown children, 2 grand children and 2 more on the was . Has a very timid mid size dog, and occasionally watches the 4 'grand dogs' and the 18 month grand daughter. Social History Employment Status Retired Current Occupation Was [employer], retired 2021. 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 Oriented Mental Status Comments Pt has some word finding issues during our session, states she is feeling a bit more scattered with the onset of her tumor. Ortho Subjective Subjective Subjective Natalymarcelo Curry Per Larios is a 68 y/o female who had a mechanical fall into her L hand/medial epicondyle ( and L hip and R elbow abrasion) at home Jul 24 with her hand outstretched and has had L elbow pain, stiffness and edema thickness in the antecubital area since then. It has been painful to do repetitive lifting of laundry, grocery loads and scrubbing. icing 1-2x/day feels helpful, taking some Aleve. Does not have any compression or bracing. 08/15/24 X-ray notes: Posterior olecranon spur noted. Mild spurring at the coronoid process. Spurring at the lateral humeral and medial humeral epicondyles. No joint effusion or fracture. Of note, with her R temporal area benign tumor, she is having some dizziness, balance changes in addition to the hearing loss, and she does feel like her fall was related to the effects of the tumor. Pain Assessment Pain Pain Yes Pain Comments 06/04 EDEMA Elbow crease is 28.0 cm , increased by one cm compared to R side ( significant change is 1 cm). Some wasting of biceps likely per disue/ guarding. Tissue Texture changes-- with thickness at antecubital fossa , tender, rope-like thickness at Teres minor and thickness and L pec minor. Range of Motion and Strength Shoulder Range of Motion and Strength Shoulder Range of Motion and Strength R SH MMT FL, ABD, IR 5/5. R SH ER 4/5, no pain. AROM to 160 of 180. L SH MMT 5/5 FL, ABD, ER. L Sh IR 4/5, painful refers to biceps insert. Elbow/Forearm Range of Motion and Strength Elbow/Forearm Range of Motion and B Triceps 5/5. Strength L EL FL 4/5 MMT in supination and pronation, 4-5/10 painful, refers to biceps insert. Pronation 5/5 L supination 4/5 MMT, 4-5/10 painful, refers to biceps insert. Full ROM, tender with over pressure of elbow hyperextension. Wrist Range of Motion and Strength Wrist Range of Motion and Strength WNL AROM, balanced MMT. Hand Pinch/Marble Chip Terrazzo Worker Strength Hand Pinch/Marble Chip Terrazzo Worker Strength Hand Pinch/Marble Chip Terrazzo Worker Strength Left Hand,Right Hand Left Hand Marble Chip Terrazzo Worker Strength Position 1 in Elbow 65 Flexion (lbs) Marble Chip Terrazzo Worker Strength Position 2 in Elbow 60 Extension (lbs) Lateral Pinch Strength (lbs) 14 Three Point Pinch (lbs) 16 Right Hand Marble Chip Terrazzo Worker Strength Position 1 in Elbow 70 Flexion (lbs) Marble Chip Terrazzo Worker Strength Position 2 in Elbow 70 Extension (lbs) Lateral Pinch Strength (lbs) 16 Three Point Pinch (lbs) 19 Comments Comments My arm gets super tired with this testing. 1-2/10 pn at biceps insert during sanchez pinch and 3 pt pinch. OT Objective Data Hand Hand Dominance Right Sensation Sensation Assessment Summary Comments denies numbness or sensory change. Upper Extremity Special Tests Elbow Cozens Test Negative Left,Negative Right OT Problems Problems Problems Decreased Strength,Decreased Range of Motion,Pain,Lifting, Pinching Other Problems Opening Containers,Sleeping Patient Potential Excellent Assessment Assessment Assessment Antoinette is having post fall related sx of L elbow strain? difficulty with edema, pain, ROM and strength loss of L hand/wrist/elbow limiting daily tasks, she/he would benefit from skilled OT to address these areas. OT will also monitor safety, balance, cognitive and oculo motor changes per the tumor. Occupational Therapy Treatment Plan - OP Potential Rehabilitation Potential Excellent Set Goals Goals Set with Patient Yes Goals Goals In 8 weeks, pt will demonstrate:? 1) Decreased L elbow pn to <2/ 10 80% of the time with sustained gripping, carrying groceries, use of cooking tools and cleaning 2) I HEP for stretching, gradual strengthening and self mgmt strategies. 3) improved L pinch strength to 16# with L elbow pain < 1/10. 4) OTR to screen ocuolmotor skills and cognition with MOCA with education and further resources to support fall risk reduction. Treatment Plan Treatment Plan Evaluation,Edema Control, Iontophoresis,Joint Mobilization,Manual Therapy, Splinting,Ultrasound, Therapeutic Exercise,Self Care /Home Management,Education Expected Frequency 1-2x Week Expected Duration 6-8 Weeks Home Program Home Program Home Program Initiated Home Program Specifics Put tub shower bench into place for fall risk reduction. Has one grab bar inside of tub shower. Use of compression tetragrip G and gel pack for edema mgmt Certification Certification Statement I Certify That: Therapy Services Provided, Therapy Plan Established, Therapy Plan Reviewed Certification Information Clinic ID # [id number] Initial Certification Date 09/27/24 Recertification Due Date 12/26/24 Provider Signature Required Yes Provider Signature Shows Agreement With POC & Medical Necessity Physician NPI Number Write NPI# Here Physician Comment/Change Comment or Changes Physician Signature & Date Requested Please Sign/Date Here
--- NOTE | 2024-10-28 10:00 | OT.OPODN ---
OT Outpatient Ortho Daily Note OT Outpatient Ortho Daily Note* Start: 09/27/24 12:15 Freq: Status: Active Protocol: Document 10/28/24 09:45 LCN (Rec: 10/28/24 09:59 LCN [id number]) E-signed By Kathe Burgess, OTR/L, CLT Type of Note Type of Note Type of Note Daily Note,Discharge Note,Note to MD Visit Number 6 Insurance Information Insurance Information Medicare B Insurance Information Comments [employer] Gold Choice. Outpatient History/Precautions Current Condition/Medical Diagnosis Referring Provider Dr. Huntley Medical Diagnoses L elbow pain Treatment Diagnosis L elbow stiffness, edema and weakness. 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 Same day as losing her mother to rapid 2 week bout of pancreatic cancer . 3 kidney stones found . Affected by hypothyroidism, fatty liver changes, didi min D deficiency, chronic low back pain and pericarditis. PMHX includes spinal surgery 2001. hysterectomy 2009, ablation 2014, R wrist fracture with 3 surgeries/ ulnar resection with hardware and lots of rehab 2014. R shoulder surgery Jun 2021. Medical/Functional History Medical History Reviewed Yes Prior Level of Function/Mobility Pt lives alone in [address] home. 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 Has 3 grown children, 2 grand children and 2 more on the was . Has a very timid mid size dog, and occasionally watches the 4 'grand dogs' and the 18 month grand daughter. Social History Employment Status Retired Current Occupation Was [employer], retired 2021. 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 Oriented Mental Status Comments Pt has some word finding issues during our session, states she is feeling a bit more scattered with the onset of her tumor. 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 Continues to have R hip pain 4 /10 over the hematoma area from her fall in July. K TAPE/fan tape and alternating hot/cold feel helpful, would benefit from PT to address pain with soft tissue techqniues and ultrasound. From Eval 09/27/24--Nataly Curry Per Larios is a 68 y/o female who had a mechanical fall into her L hand/medial epicondyle ( and L hip and R elbow abrasion) at home Oct 30 with her hand outstretched and has had L elbow pain, stiffness and edema thickness in the antecubital area since then. It has been painful to do repetitive lifting of laundry, grocery loads and scrubbing. icing 1-2x/day feels helpful, taking some Aleve. Does not have any compression or bracing. X-ray notes: Posterior olecranon spur noted. Mild spurring at the coronoid process. Spurring at the lateral humeral and medial humeral epicondyles. No joint effusion or fracture. Of note, with her R temporal area benign tumor, she is having some dizziness, balance changes in addition to the hearing loss, and she does feel like her fall was related to the effects of the tumor. Pain Assessment Pain Pain Yes Pain Comments 01/02 EDEMA Elbow crease is 28.0 cm , increased by one cm compared to R side ( significant change is 1 cm). Some wasting of biceps likely per disue/ guarding. Tissue Texture changes-- with thickness at antecubital fossa , tender, rope-like thickness at Teres minor and thickness and L pec minor. OT OP Daily Ortho Note/Assessment Therapeutic Exercise Therapeutic Exercise Minutes (minutes) 12 Therapeutic Exercise Comments To support forearm stabilization, muscle balance, tissue re-modelling and endurance, OTR educates pt in HEP for WR EX, FL RD/UD and sup/pronation with 2# weight with forearm stabilized. Able to return full return from handout. Manual Therapy Manual Therapy Minutes (minutes) 15 Manual Therapy Comments IASTM-- Used dynamic nerve fascial glide testing to identify areas of pull during ulnar nn glide (pulling at L medial elbow FCU area and front of shoulder with pos 3,4 minimal pulling during pos 5- 6 of ULNT). OTR tx pt in seated with IASTM with Graston #6 to mobilize soft tissue surrounding joint capsule, ligament structures of L biceps insert, triceps insert and muscle bulk of forearm/ wrist flexor muscle groups to support freedom of movement, help alleviate pain by breaking down scar tissue and adhesions and support healing of structures by increasing blood flow and nutrient delivery to the affected area. Improved tissue glide for all positions. No kinseiotaping applied. Ultrasound Ultrasound Minutes (minutes) 8 Ultrasound Location & Joint Position L biceps insert, medial to Medial epicondyle, open Ultrasound Frequency & Mode 3 MHz Continuous Intensity (w/cm2) 1.5 Ultrasound Comments as needed to support reduction of edema for tissue healing, improved circulation and tissue mobility. Iontophoresis Iontophoresis Minutes (minutes) 0 Iontophoresis Location L bicipital insert, added skin prep, moved to lateral portion of biceps to protect skin. Iontophoresis Treatment Parameters & 80 mAmp*min,Extended Wear Rational/Set Up Patch,Dexamethasone, Instruction In Removal, Instruction In Rationale, Instruct Desired Response Iontophoresis Comments #5 of 10 Ionto application. Unbillable per Medicare, not charged. Total Occupational Therapy Time Occupational Therapy Minutes 35 Home Program Home Program Home Program Revised,Compliant Home Program Specifics 10/04/24-- pec door way stretch . Added UE traction EL EX 10/09. 10/01/24-- Scap Rows or isometrics using red band.Put tub shower bench into place for fall risk reduction. Has one grab bar inside of tub shower. Use of compression tetragrip G and gel pack for edema mgmt Range of Motion and Strength Shoulder Range of Motion and Strength Shoulder Range of Motion and Strength R SH MMT FL, ABD, IR 5/5. R SH ER 4/5, no pain. AROM to 160 of 180. L SH MMT 5/5 FL, ABD, ER. L Sh IR 4/5, painful refers to biceps insert. Elbow/Forearm Range of Motion and Strength Elbow/Forearm Range of Motion and B Triceps 5/5. Strength L EL FL 4/5 MMT in supination and pronation, 4-5/10 painful, refers to biceps insert. Pronation 5/5 L supination 4/5 MMT, 4-5/10 painful, refers to biceps insert. Full ROM, tender with over pressure of elbow hyperextension. Wrist Range of Motion and Strength Wrist Range of Motion and Strength WNL AROM, balanced MMT. Hand Pinch/Ostomy Care Nurse Strength Hand Pinch/Ostomy Care Nurse Strength Hand Pinch/Ostomy Care Nurse Strength Left Hand,Right Hand Left Hand Ostomy Care Nurse Strength Position 1 in Elbow 65 Flexion (lbs) Ostomy Care Nurse Strength Position 2 in Elbow 60 Extension (lbs) Lateral Pinch Strength (lbs) 14 Three Point Pinch (lbs) 16 Right Hand Ostomy Care Nurse Strength Position 1 in Elbow 70 Flexion (lbs) Ostomy Care Nurse Strength Position 2 in Elbow 70 Extension (lbs) Lateral Pinch Strength (lbs) 16 Three Point Pinch (lbs) 19 Comments Comments My arm gets super tired with this testing. 1-2/10 pn at biceps insert during sanchez pinch and 3 pt pinch. OT Objective Data Hand Hand Dominance Right Sensation Sensation Assessment Summary Comments denies numbness or sensory change. Upper Extremity Special Tests Elbow Cozens Test Negative Left,Negative Right OT Problems Problems Problems Decreased Strength,Decreased Range of Motion,Pain,Lifting, Pinching Other Problems Opening Containers,Sleeping Patient Potential Excellent Assessment Assessment Assessment Pt's goal progress has been reviewed per above and agrees she is ready for discharge from OT at this time. OTR send referral request for PT to address pn/edema from R hip hematoma. Antoinette is having post fall related sx of L elbow strain? difficulty with edema, pain, ROM and strength loss of L hand/wrist/elbow limiting daily tasks, she/he would benefit from skilled OT to address these areas. OT will also monitor safety, balance, cognitive and oculo motor changes per the tumor. Occupational Therapy Treatment Plan - OP Potential Rehabilitation Potential Excellent Set Goals Goals Set with Patient Yes Goals Goals Progress after 6 visits of OT, pt demonstrates:? 1) Decreased L elbow pn to <2/ 10 80% of the time with sustained gripping, carrying groceries, use of cooking tools and cleaning 10/28/2024-- GOAL MET. 2) I HEP for stretching, gradual strengthening and self mgmt strategies. 10/28/2024-- GOAL MET. 3) improved L pinch strength to 16# with L elbow pain < 1/10. 10/28/2024-- GOAL MET. Treatment Plan Treatment Plan Evaluation,Edema Control, Iontophoresis,Joint Mobilization,Manual Therapy, Splinting,Ultrasound, Therapeutic Exercise,Self Care /Home Management,Education Expected Frequency 1-2x Week Expected Duration 6-8 Weeks Occupational Therapy Billing Units Treatment Minutes Timed Treatment Minutes 35 Total Treatment Minutes 35 Billing Units Iontophoresis 0 Manual Therapy 1 Self Care/Home Management 0 Therapeutic Exercise 1 Certification Statement Certification Statement I Certify That: Therapy Services Provided, Therapy Plan Established, Therapy Plan Reviewed
== END 2024-10-28 12:06 | disposition home or self-care (01) ==
PROVIDERS: PCP Family Medicine; Visit Provider Family Medicine
DX: M25.522 Pain in left elbow (principal); M25.622 Stiffness of left elbow, not elsewhere classified; R60.9 Edema, unspecified; R53.1 Weakness; Z51.89 Encounter for other specified aftercare
CPT/HCPCS: 97035; 97110; 97140; 97165; 97535; X5282

== ENCOUNTER 2024-11-19 08:59 | Outpatient (CLI) | payer MEDICARE, SELFPAY | END 2024-11-19 09:00 | disposition home or self-care (01) | LOC: US 09:01 | PROVIDERS: PCP Family Medicine; Visit Provider Family Medicine | DX: M79.89 Other specified soft tissue disorders (principal); S30.0XXA Contusion of lower back and pelvis, initial encounter | CPT/HCPCS: 10160; 76942 ==

== ENCOUNTER 2025-04-09 12:50 | Outpatient (CLI) | payer MEDICARE, SELFPAY ==
--- NOTE | 2025-04-09 13:00 | CRLHL7_ITS ---
For Patients: As a result of the Century Cures Act, medical imaging exams and procedure reports are released immediately into your electronic medical record. You may view this report before your referring provider. If you have questions, please contact your health care provider. Indication: Palpable lump Technique: Grayscale and color Doppler ultrasound of the right buttock soft tissues performed. Comparison: 10/24/2024, 11/19/2024 Findings: Complex nonvascular fluid collection is present which measures 11.9 x 10.5 x 9.1 cm, previously measuring 13.0 x 10.3 x 10.9 cm. No internal vascularity. No distal acoustic shadowing. Impression: Slightly decreased size of subcutaneous hematoma, now measuring 11.9 cm, previously measuring 13.0 cm. Dictated by Fito Gibson MD @ 04/10/2025 9:28:14 AM (Electronically Signed)
== END 2025-04-09 12:51 | disposition home or self-care (01) ==
LOC: US 12:51
PROVIDERS: PCP Family Medicine; Visit Provider Surgery
DX: R22.41 Localized swelling, mass and lump, right lower limb (principal); M79.18 Myalgia, other site
CPT/HCPCS: 76882

== ENCOUNTER 2025-05-28 08:33 | Outpatient (CLI) | payer MEDICARE, SELFPAY | END 2025-05-28 08:34 | disposition home or self-care (01) | LOC: NFLDREF 05-29 10:24 | PROVIDERS: PCP Family Medicine; Referring Provider Family Medicine; Visit Provider Family Medicine | DX: E11.69 Type 2 diabetes mellitus with other specified complication (principal); E66.9 Obesity, unspecified; E03.9 Hypothyroidism, unspecified; E55.9 Vitamin D deficiency, unspecified; I10 Essential (primary) hypertension; R74.8 Abnormal levels of other serum enzymes; E78.5 Hyperlipidemia, unspecified | CPT/HCPCS: 80053; 80061; 82306; 84443 ==

== ENCOUNTER 2025-05-30 07:56 | Outpatient (CLI) | payer MEDICARE, SELFPAY | END 2025-05-30 07:57 | disposition home or self-care (01) | LOC: NFLDREF 07:57 | PROVIDERS: PCP Family Medicine; Visit Provider Family Medicine | DX: R31.9 Hematuria, unspecified (principal) | CPT/HCPCS: 87086 ==

== ENCOUNTER 2025-07-14 06:12 | Day surgery (SDC) | payer MEDICARE, SELFPAY ==
[2025-07-14] VITALS (14 sets, daily range): BP systolic 121–160; BP diastolic 63–93; PULSE 57–80; RESP 12–21; TEMP 36.6–37.2; O2SAT 91–98; BMI 42.3
[2025-07-14] MEDS: LACTATED RINGERS 1000 ML 1,000 ML 100 ML IV ×2 (06:50→08:19)
[2025-07-14] MEDS: SODIUM CHLORIDE 0.9 % (FLUSH) 10 ML SYRINGE IVF (06:50)
--- NOTE | 2025-07-14 07:09 | W.PM.H&PU ---
History & Physical Update History & Physical Update H&P Reviewed and patient assessed: The following changes are noted below H&P Updates: Patient fell 2 weeks ago and feels that her right buttocks hematoma is larger and firmer than before. Patient is not on anti coagulation. On clinical exam the right buttocks hematoma is firm to palpation and is about orange size.
--- NOTE | 2025-07-14 07:15 | P.GSOP_ITS ---
Operative Note Date of procedure: 07/14/25 Pre-op diagnosis: 1. Right buttocks chronic seroma/hematoma. Post-op diagnosis: Same Type of Procedure: 1. Excision of right buttocks mass/chronic seroma with complex incisional closure. Indications: 69-year-old female was seen in clinic for evaluation of right buttocks mass. Patient fell in June of 2020 for and had right buttocks hematoma. Patient felt like her hematoma was not going away and was seen by her primary care doctor. An ultrasound was obtained in October of 2024 and needle aspiration of seroma was performed. 340 mL of bloody fluid was removed. Patient continued to have firmness in the right buttocks that was ?sore?. Sitting in the chair was painful. On clinical exam the right buttocks was more protuberant than the left with a central firmness to palpation. This firmness was measured at least 20 x 12 cm and was palpated deep to the soft tissue. It was difficult to discern if this was simple fluid or organized hematoma. Patient was then referred for a repeat ultrasound which was done in March of 2025. Patient's ultrasound showed complex fluid collection measuring 11.9 x 10.5 cm. Given patient's continued symptoms and persistence of fluid collection, excision of the right buttocks complex chronic seroma was recommended. The procedure was discussed in detail. The risks associated procedure including infection, bleeding, seroma recurrence, and the need for additional procedures were all discussed with the patient, and she agreed to proceed. Patient wanted to delay the procedure until the fall. She presents today and states that she fell 2 weeks ago and noted that her size of the hematoma has increased. It has been more painful. On clinical exam the hematoma is more prominent and firm to palpation. Procedure Description: After discussing the risks and benefits of the procedure, the patient signed informed consent.? The operative site was marked and the patient was brought to the operating room and placed on the operating table in supine position.? Care was taken to pad the patient's pressure points.?? The patient was then intubated by anesthesia.? The patient was repositioned in the left lateral decubitus position with pressure points padded.? The operative site was then prepped and draped in the usual sterile fashion.? A time-out was then performed. An elliptical slightly oblique skin incision was made with a scalpel at the superior edge of the palpable chronic hematoma/seroma. Subcutaneous fat was then divided with cautery until the capsule of the chronic seroma was identified. This chronic seroma/mass was then circumferentially dissected from subcutaneous fat. This was located in the superficial space and not invaded the muscle. Posteriorly this was attached to the muscle fascia and was shaved off the muscle fascia. Hemostasis throughout the case was achieved with Vicryl ties and cautery. When the seroma was circumferentially dissected, it was eviscerated from the incision. It was then further dissected off subcutaneous fat and passed off the field. It measured 17 x 14 cm. The chronic seroma/mass was excised en bloc and the seroma cavity was not entered. However, it too was opened on the back table and thin brown in appearance fluid came out from the chronic seroma with minimal debris. The chronic seroma was marked with a single stitch superior and double lateral. This was sent to pathology in formalin. The ellipse of skin skin overlying the chronic seroma was then excised and sent to pathology. The inferior skin appeared thin and subcutaneous fat cavity now was fairly large. I elected to modify the incision to achieve smaller subcutane ous space. The incision was slightly enlarged superior laterally and inferior medially, and an additional 2 cm sliver of inferior skin was excised with a scalpel and cautery. This was sent to pathology with the main specimen. The incision was then irrigated with normal saline. Hemostasis achieved with cautery. Local anesthetic was injected in the muscle fascia and subcutaneous fat. Fifteen round Servando drain was then placed inferior lateral to the main incision through a separate stab skin incision. The drain was secured in place with 3-0 nylon suture. I then proceeded with complex incisional closure. Subcutaneous fat was reapproximated with multiple 0-0 Vicryl sutures bringing superior fat to the inferior subcutaneous cavity to feel the subcutaneous fat void. The dermis was then reapproximated with multiple interrupted 2-0 and 3-0 Vicryl sutures. The skin was closed with a running 4-0 Monocryl stitch. Steri- Strips and sterile 4 x 4 gauze as well as ABD were placed over the incision. A drain sponge was placed under the drain. All the dressings were secured in place with tape. All counts were correct at the end of the case. ? The patient was then woken and transported to the recovery area in stable condition. ? The patient tolerated the procedure well. Findings: 17 x 14 cm chronic seroma excised en bloc Anesthesia: GETA Surgeon: Katie Oliva MD Estimated blood loss (mL): 10 Additional Specimen Information: 1. Right buttocks mass with overlying skin. Condition: stable Disposition: PACU
--- NOTE | 2025-07-14 08:07 | SUR.OPER ---
PATIENT QUESTIONS ANSWERED SATISFACTORILY PREOPERATIVELY. PATIENT BROUGHT TO OR #4 PER CART. Patient positioned supine on OR #4 bed. The perioperative team supported arms bilaterally on arm boards. Final approval of positioning by surgeon.
--- NOTE | 2025-07-14 08:16 | P.ANES_ITS ---
Anesthesia Charges Start Date/Time Anesthesia Start Date: 07/14/25 Anesthesia Start Time: 07:20 Stop Date/Time Anesthesia Stop Date: 07/14/25 Anesthesia Stop Time: 09:36 Coding CPT Codes CPT Codes: ANESTH HEAD/NECK/PTRUNK - 02910 ([id number]) QK - MEDIA SALES CONSULTANT 2-4 CNCRNT ANES PROC, QX - BORING INSPECTOR SVC W/ MD MED DIRECTION, P3 - PATIENT W/SEVERE SYS DISEASE
--- NOTE | 2025-07-14 08:16 | W.ANESCHARGE ---
Anesthesia Charges Start Date/Time Anesthesia Start Date: 07/14/25 Anesthesia Start Time: 07:20 Stop Date/Time Anesthesia Stop Date: 07/14/25 Anesthesia Stop Time: 09:36 Coding CPT Codes CPT Codes: ANESTH HEAD/NECK/PTRUNK - 81222 ([id number]) QK - MANAGER LIFE 2-4 CNCRNT ANES PROC, QX - ORGANISATIONAL PSYCHOLOGIST SVC W/ MD MED DIRECTION, P3 - PATIENT W/SEVERE SYS DISEASE
[2025-07-14] MEDS: LIDOCAINE 1%-EPI 1:100,000 10 ML INFILTRATI (08:50)
[2025-07-14] MEDS: BUPIVACAINE 0.25% 30 ML 10 ML INJECTION (08:50)
--- NOTE | 2025-07-14 09:39 | P.ANES_ITS ---
Anesthesia Charges Start Date/Time Anesthesia Start Date: 07/14/25 Anesthesia Start Time: 07:20 Stop Date/Time Anesthesia Stop Date: 07/14/25 Anesthesia Stop Time: 09:36 Coding CPT Codes CPT Codes: ANESTH HEAD/NECK/PTRUNK - 84054 ([id number]) P3 - PATIENT W/SEVERE SYS DISEASE, QX - FIBER OPTICS TECHNICIAN SVC W/ MD MED DIRECTION, QK - POLICE COMMISSIONER 2-4 CNCRNT ANES PROC
--- NOTE | 2025-07-14 09:39 | W.ANESCHARGE ---
Anesthesia Charges Start Date/Time Anesthesia Start Date: 07/14/25 Anesthesia Start Time: 07:20 Stop Date/Time Anesthesia Stop Date: 07/14/25 Anesthesia Stop Time: 09:36 Coding CPT Codes CPT Codes: ANESTH HEAD/NECK/PTRUNK - 87655 ([id number]) P3 - PATIENT W/SEVERE SYS DISEASE, QX - METALLURGICAL OR MATERIALS TECHNICIAN SVC W/ MD MED DIRECTION, QK - OPERATIONS SUPPORT ANALYST 2-4 CNCRNT ANES PROC
--- NOTE | 2025-07-14 10:11 | SUR.PHASEI ---
patient met discharge criteria per anesthesia
[2025-07-14] MEDS: HYDROCODONE-ACETAMIN 5-325 MG 1 TAB PO (10:57)
== END 2025-07-14 11:50 | disposition home or self-care (01) ==
PROVIDERS: PCP Family Medicine; Visit Provider Surgery
PROC: (CPT 27043; principal; 2025-07-14 07:30)
DX: T79.2XXA Traumatic secondary and recurrent hemorrhage and seroma, initial encounter (principal); S30.0XXA Contusion of lower back and pelvis, initial encounter; E11.9 Type 2 diabetes mellitus without complications; E66.01 Morbid (severe) obesity due to excess calories; Z68.41 Body mass index [BMI] 40.0-44.9, adult; I10 Essential (primary) hypertension
CPT/HCPCS: 27043; 13100; 00300; 82962; 88305; A9270; J0330; J0665; J0690; J1100; J2250; J2405; J2704; J3010; J7120

== ENCOUNTER 2025-09-01 21:12 | Emergency (ER) | payer MEDICARE, SELFPAY ==
--- OUTSIDE RECORDS SUMMARY | 2025-09-01 21:14 | XMS_ITS | Clinical Summary ---
Author Organization [facility] Address [address] [place] [id number] Care Team Providers Care Sas Architect Name Role Phone Higinio Solano MD Primary Care Provide r Allergies No known active allergies Medications atenolol (TENORMIN) 25 mg tablet Take 1 tablet by mouth once daily. 0 3 Active levothyroxine (LEVOTHROID) 75 mcg tablet Take 1 tablet by mouth once daily. 0 4 Active NYSTOP powder Apply 1 Applicator topically to affected area(s) 2 times daily if needed. 0 7 Active traMADol (ULTRAM) 50 mg tablet Take 1 tablet by mouth 3 times daily if needed. 0 7 Active cholecalciferol (VITAMIN D-3) 2,000 unit capsule Take 1 capsule by mouth once daily. 0 7 Active ascorbic acid, vitamin C, (VITAMIN C) 500 mg tablet Take 1 tablet by mouth once daily. 0 7 Active calcium carbonate-vitam in D3, 600 mg-125 unit, (CALCIUM 600 + D) tablet Take 1 tablet by mouth 2 times daily with meals. 0 7 Active gabapentin (NEURONTIN) 300 mg capsuleIndicati ons:Lumbar radicular pain Take 1 capsule by mouth at bedtime. 30 capsule 3 7 Active ibuprofen (ADVIL; MOTRIN) 800 mg tablet 0 Active valACYclovir (VALTREX) 1 gram tablet 0 Active Active Problems Problem Noted Date Diagnosed Date Hypothyroidism (acquired) 06/10/2016 Paroxysmal SVT (supraventricular tachycardia) S/P Discectomy L5-S1 12/02/2009 Chronic Lumbar Pain 12/02/2009 Lumbar Radiculopathy 12/02/2009 Degeneration of lumbar or lumbosacral interverte bral disc 05/01/2008 Resolved Problems Problem Noted Date Diagnosed Date Resolved Date Hypothyroidism (acquired) 06/10/2016 Paroxysmal SVT (supraventricular tachycardia) 06/10/20 16 03/16/2017 Encounters Date Type Department Care Team Description 07/14/2025 Lab Requisition [facility] [phone] Katie Oliva MD from Last 3 Months Social History Tobacco Use Types Packs/Day Years [...] Paying Living Expenses Not on file 09/25/2021 Comments No Sex and Gender Information Value Date Recorded Sex Assigned at Not on file Legal 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 Gender Identity Not on file Sexual Orientation Not on file Last Filed Vital Signs Vital Sign Reading [...] Health Maintenance Due Date Last Done Comments Tetanus booster 1967 Colonoscopy through age 75 2001 Lipids for age 45-75 2001 Mammogram for age 45-75 2001 Pneumococcal series for age 50+ (1 of 1 - PCV) 2006 Zoster (shingles) series for age 50+ (1 of 2) 2006 BMI (ht and wt on same day) for age 18+ 06/10/2017 06/10/2016 Depression screening for age 12+ 06/10/2017 06/10/2016 DEXA/DXA scan for age 65+ 2021 COVID-19 vaccine series (2024- season) 2025 Influenza Vaccine (#1) 2025 RSV vaccine for adults or (1 - 1-dose 75+ series) 2031 Hepatitis C screening for ag e 18-79 Completed 07/13/2016, 06/10/2016 Hepatitis B series for 19+ Aged Out N o longer eligible based on patient's age to complete this topic Procedures Procedure Name Priority Date/Time Associated Diagnosis Comments LAB TRACKING EVENT Routine 07/14/2025 8: 37 AM CDT PATH TISSUE EXAM Routine 07/14/2025 8:37 AM CDT ANTI HCV Routine 07/13/2016 2:08 PM CDT Needle stick injury of finger, initial encounter from Last 3 Months or Most Recently Relevant to Health Maintenance Results * LAB TRACKING EVENT (07/14/2025 8:37 AM CDT) Other (Other) Client Collect / Unknown 07/14/2025 8:37 AM CDT 07/14/2025 2:16 PM CDT us Katie Oliva MD LAB BILL ONLY Final Resu lt [facility] [address] [place] [address], * PATH TISSUE EXAM (07/14/2025 8:37 AM CDT) Case Report Pathology Report Case: [id number] Authorizing Provider: Katie Oliva MD Collected: 07/14/2025 0837 Ordering Location: [facility] Received: 07/14/2025 1529 Pathologist: Roc Chun MD Specimen: Right Buttock, right buttock mass with overlying skin; single stitch is superior, double stitch is lateral, specimen was inscised on the sterile field 07/16/2025 9:19 AM CDT [facility] Final Diagnosis A) RIGHT BUTTOCK MASS, EXCISION: 1. Dense fibrous tissue and organizing fibrin, consistent with chronic hematoma 2. Negative for malignancy 07/16/2025 9:19 AM CDT [facility] at 0919 CDT Clinical Information Right buttocks mass 07/16/2025 9:19 AM CDT [facility] Gross Description A) Received in formalin, labeled with the patient's name and right buttock mass, is an oriented, previously partially incised 15 x 15 x 9.2 cm cystic mass and 2 detached unoriented portions of rogers skin with attached fibroadipose tissue. The cystic mass is received oriented with sutures and inked as follows: Anterior--Orang e Posterior--Bob k Superior--Blue Inferior--Red Medial--Green Lateral--Yellow Sectioning reveals a 15 cm unilocular cavity containing thin blood-tinged liquid and loosely adherent ragged reddish-brown hemorrhagic debris. Boat Garnisher sections are submitted: 1-2. Detached skin and fibroadipose tissue 3-8. Cyst wall, to include all inked margins STN 07/14/2025 07/16/2025 9:19 AM CDT [facility] Microscopic Description The final diagnosis is based on microscopic examination of appropriate sections of all specimens. 07/16/2025 9:19 AM CDT [facility] Additional Information Interpreted at [facility] [employer] [facility] - [address] [address] 07/16/2025 9:19 AM CDT [facility] Other (Right Buttock) 07/14/2025 8:37 AM CDT 07/14/2025 3:29 PM CDT Katie Oliva MD PATHOLOGY/CYTOLOGY Final R esult [facility] [address] [place] [address], * ANTI HCV (07/13/2016 2:08 PM CDT) HEPATITIS C ANTIBODY Non-Reacti ve Non-Reacti ve 07/13/2016 9:50 PM CDT [facility] Blood BLOOD SPECIMEN / Unknown Venipuncture / Unknown 07/13/2016 2:08 PM CDT 07/13/2016 3:16 PM CDT Narrative [facility] - 07/13/2016 9:50 PM CDT Antibodies to HCV not detected; does not exclude the possibility of exposure to HCV. us Robbin Ewing MD SEND OUTS Final Result [facility] [address] [place] [address], from Last 3 Months or Most Recently Relevant to Health Maintenance Insurance [facility] [employer] Care Teams Sas Architect Relationship Specialty Start Date End Date Higinio Solano MD [address] [place] [id number] PCP - General Emergency Medicine 06/26/18
--- OUTSIDE RECORDS SUMMARY | 2025-09-01 21:14 | XMS_ITS | Clinical Summary ---
Author Organization [facility] Address [address] [place] [address] Care Team Providers Care Senior Geotechnical Engineer Name Role Phone Elsewhere, Pcp Primary Care Provider Unavailabl e Source Comments Patient records contain information from all sites at [facility]. For routine questions regarding patient records, call [phone] during business hours, M-F 8:00 AM - 5:00 PM Central Time. Record requests for emergency care only can be directed to [phone] at any time.[facility] Allergies No known active allergies Medications * This document contains information received from the source organization and may not represent a complete record from that organization. ascorbic acid, vitamin C, (Vitamin C) 1,000 mg tablet Take 1 tablet by mouth daily. 5 Active atenoloL (Tenormin) 25 mg tablet Take 1 tablet by mouth daily. 3 Active levothyroxine 75 mcg tablet Take 1 tablet by mouth daily before morning meal. 4 Active metFORMIN XR (Glucophage-XR) 500 mg 24 hr tablet Take 500 mg by mouth every evening. 5 Active traMADoL (Ultram) 50 mg tablet Take 1 tablet by mouth as needed for severe pain or score 7-10 of 10. Infrequent use. 7 Active naproxen sodium 220 mg tablet Take 404-660 mg by mouth as needed for pain. Active valACYclovir (Valtrex) 1000 mg tablet Take 1,000 mg by mouth as needed (Cold sores). 0 Active nystatin (Nystop) 100,000 unit/gram powder Apply 1 Application topically as needed. 7 Active calcium carbonate/vitam in D3 (CALCIUM 600 + D,3, ORAL) Take 1 tablet by mouth daily. Active LORazepam (Ativan) 0.5 mg tablet Take 0.5 mg by mouth as needed for anxiety (Prior to an MRI). 4 Active cholecalciferol , vitamin D3, (cholecalcifero l) 25 mcg (1,000 Unit) tablet Take 25-50 mcg by mouth daily. 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 Date Type Department Care Team Description 06/18/2025 Orders Only Department of Neurologic Surgery in [place], [place] [address] [place] [address] Jenni Barrera R.N. Neuroma Acoustic (HCC) (Primary Dx) from Last 3 Months Family History Medical History Relation Name Comments Diabetes Brother Bert Hypertension Brother Bert Colon cancer Father Gibson Lymphoma Father Gibson Stroke Maternal Grandfather Marina Pancreatic cancer Mother Caitlin Diabetes Sister Susan Hypertension Sister Susan Kidney disease Sister Susan Relation Name Status Comments Brother Bert Alive Father Gibson Alive Maternal Grandfather Marina Alive Mother Caitlin Alive Sister Susan Alive Social History Tobacco Use Types Packs/Day Years Used Date Smoking Tobacco: Never Passive Smoke Exposure: Past Smokeless Tobacco: Never Tobacco Cessation:Counseling Given: Not Answered Passive Exposure Comments:Childhood exposure. Alcohol Use Standard Drinks/Week Comments Not Currently 0 (1 standard drink = 0.6 oz pur e alcohol) rare [facility] Utilities Answer Date Recorded In the past 12 months has th e electric, gas, oil, or water [employer] threatened to shut off services in your home? No 09/08/2024 Hunger Vital Sign Answer Date Recorded Within the past 12 months, y ou worried that your food would run out before you got the money to buy more. Never true 09/08/20 24 Within the past 12 months, t he food you bought just didn't last and you didn't have money to get more. Never true 09/08/2024 PRAPARE - Transportation Answer Date Re corded In the past 12 months, has l ack of transportation kept you from medical appointments or from getting medications? No 08/25 In the past 12 months, has l ack of transportation kept you from meetings, work, or from getting things needed for daily living? No 09/08/2024 Housing Stability Answer Date Recorded What is your living situation today? I have a [facility] place to live 09/08/2024 Comments No Sex and Gender Information Value Date Recorded Sex Assigned at Female 09/08/2024 12:25 PM RESEARCH FOOD TECHNOLOGIST Legal Sex Female 5:25 PM RESEARCH FOOD TECHNOLOGIST Gender Identity Female 09/08/2024 12:25 PM RESEARCH FOOD TECHNOLOGIST Sexual Orientation Straight 09/08/2024 12 :25 PM RESEARCH FOOD TECHNOLOGIST Last Filed Vital Signs Vital Sign Reading Time Taken Comments Blood Pressure 135/66 04/24/2025 9:25 AM CDT Pulse 60 04/24/2025 9:25 AM CDT Temperature 36.8 C (98.2 F) 04/24/2025 6:06 AM CDT Respiratory Rate 16 04/24/2025 6:06 AM CDT Oxygen Saturation 96% 04/24/2025 9:25 AM CDT Inhaled Oxygen Concentration - - Weight 116 kg (255 lb 15.3 oz) 04/24/2025 6:06 A M CDT Height 167.6 cm (5' 6) 04/24/2025 6:06 AM CDT Body Mass Index 41.31 04/24/2025 6:06 AM CDT Plan of Treatment Health Maintenance Due Date Last Done Comments Bone Density Scan (Osteoporosis Screen) 1956 CT Colonography 1955 Cologuard 1955 Colonoscopy 1956 Colorectal Cancer Surveillance 1955 Hepatitis C Screening 1955 Mammogram 1955 Thyroid Stimulating Hormone (TSH) test for thyroid function 1956 Zoster Vaccines (1 of 2) 1975 RSV vaccine - (32-36 weeks) or 50+ years (1 - Risk 50-74 years 1-dose series) 2006 Depression Screening (Annual PHQ-2) 09/25/2024 COVID-19 Vaccine ( season) 2025 08/26/2024, 09/06/2021, 01/12/2021, Additional history exists Influenza Vaccine (#1) 2025 09/06/2021, 2019 Fasting Glucose for Diabetes Screening 04/24/2028 04/24/2025, 05/05/2015 DTaP,Tdap,and Td Vaccines (3 - Td or Tdap) 08/26/2034 08/26/2024, 07/20/2013 Pneumococcal vaccine (50+ years) Completed 02/28/2023 Fall Risk Screen (Annual) Completed 04/24/2025 HPV Vaccines Aged Out No longer eligi ble based on patient's age to complete this topic IPV Vaccines Aged Out No longer eligi ble based on patient's age to complete this topic Procedures Procedure Name Priority Date/Time Associated Diagnosis Comments GLUCOSE POCT, B Routine 04/24/2025 6:03 AM CDT from Last 3 Months or Most Recently Relevant to Health Maintenance Results * Glucose, POCT (04/24/2025 6:03 AM CDT) [facility] Glucose, POCT, B 126 70 - 140 mg/dL 04/24/2025 6:26 AM CDT PCLX Blood 04/24/2025 6:03 AM CDT 04/24/2025 6:26 AM CDT us Unknown Provider LAB POCT ORDERABLES-MANUAL Tiffanie l Result POC [facility] [address] [place] [address], [facility] POC [address] [place] [address] from Last 3 Months or Most Recently Relevant to Health Maintenance Insurance [facility] Care Teams Senior Geotechnical Engineer Relationship Specialty Start Date End Date Elsewhere, Pcp PCP - General Internal Medicine 02/28/25
[2025-09-01 21:28] VITALS: BP 191/106; PULSE 83; RESP 18; TEMP 37.1; O2SAT 96; BMI 41.6
[2025-09-01 22:12] LABS: Appearance Urine Cloudy (Clear)
--- NOTE | 2025-09-01 22:49 | CRLHL7_ITS ---
For Patients: As a result of the Century Cures Act, medical imaging exams and procedure reports are released immediately into your electronic medical record. You may view this report before your referring provider. If you have questions, please contact your health care provider. INDICATION: Right flank pain. TECHNIQUE: CT abdomen and pelvis without contrast. COMPARISON: 08/12/2024. FINDINGS: Lower chest: Unremarkable. Liver: Normal in size and attenuation. No suspicious masses. Gallbladder and bile ducts: No stones or inflammation. No biliary dilatation. Pancreas: Unremarkable. No mass or inflammation. Spleen: Normal in size. No masses. Adrenal glands: Normal in size. No nodules. Kidneys: Obstructing 6 mm stone in the distal right ureter is on series 2, image 126. This is resulting in severe hydronephrosis. Several other punctate stones remain in the right kidney. No left-sided stones. GI tract: Unremarkable. Normal in caliber. No sign of mass or inflammation. Normal appendix. Vasculature: Abdominal aorta is normal in caliber. Lymph nodes: No lymphadenopathy. Peritoneum/Abdominal Wall: Unremarkable. No sign of mass or infiltration. No free air or significant free fluid. Pelvis: Unremarkable. No pelvic masses. Bones: Unremarkable for age. IMPRESSION: Obstructing 6 mm stone in the distal right ureter causing severe hydronephrosis. Please note that all CT scans at this facility use dose modulation, iterative reconstruction, and/or weight-based dosing when appropriate to reduce radiation dose to as low as reasonably achievable. Dictated by Wellington Santamaria MD @ 09/01/2025 11:24:03 PM (Electronically Signed)
--- NOTE | 2025-09-01 22:52 | ED.GENADULT ---
HPI - General Adult General Chief complaint: Flank Pain Stated complaint: right side back pain Time Seen by Provider: 09/01/25 22:41 Source: patient Mode of arrival: ambulatory Limitations: no limitations History of Present Illness HPI narrative: 69-year-old female with a history of hypertension, diabetes, hypothyroidism, LORENZO vestibular schwannoma presenting today with right flank pain. Pain radiates around offer to the right lower quadrant and into the groin. Pain is been present all day. It caused her to vomit multiple times. She denies fevers or chills. She has had a decreased appetite. Nothing makes the pain better or worse. She denies increased urinary frequency, urgency or dysuria. No change in the color of her urine. She denies any constipation or diarrhea. She is not short of breath. Patient states that she has had kidney stones in the past. States that she still has her gallbladder. Patient also states that she recently fell and suffered from a large hematoma of the right buttocks and upper thigh area. She had a drain in place that was recently removed. Related Data Home Medications ?Medication ?Instructions ?Recorded ?Confirmed ascorbic acid (vitamin C) 500 mg 500 mg PO QDAY 03/20/25 07/30/25 tablet Previous Rx's ?Medication ?Instructions ?Recorded lorazepam 0.5 mg tablet (Ativan) 0.5 - 1 mg (1 - 2 x 0.5 mg) PO 07/17/24 Held on 07/14/25. ONCE PRN anxiety #2 tabs Instructions: Resume on 07/16/25. don't take together with pain medication nystatin 100,000 unit/gram topical 1 applic topical .2-3x per day #60 03/20/25 powder grams atenolol 25 mg tablet 25 mg PO QDAY #90 tabs 05/30/25 cholecalciferol (vitamin D3) 125 125 mcg PO QDAY #90 caps 05/30/25 mcg (5,000 unit) capsule levothyroxine 75 mcg tablet 75 mcg PO DAILY #90 tabs 05/30/25 metformin 500 mg tablet,extended 500 mg PO QPM #90 tabs 05/30/25 release 24 hr tramadol 50 mg tablet 50 mg PO QHS PRN pain #90 tabs 05/30/25 hydrocodone 5 mg-acetaminophen 325 1 tab PO Q6H PRN pain #25 tabs 07/14/25 mg tablet valacyclovir 1 gram tablet 2,000 mg (2 x 1 gram) PO BID PRN 07/21/25 cold sores #24 tabs tamsulosin 0.4 mg capsule 0.4 mg PO HS #30 caps 09/02/25 Allergies Allergy/AdvReac Type Severity Reaction Status Date / Time No Known Drug Allergies Allergy Verified 07/30/25 13:01 Review of Systems Status of ROS: Reports: 10 or more systems reviewed and unremarkable except as noted in History and below [facility] Medical History White coat syndrome with diagnosis of hypertension ?I10 - Essential (primary) hypertension (ICD-10) Multiple atypical skin moles ?D22.9 - Melanocytic nevi, unspecified (ICD-10) Lump (09/2024) Multiple nevi ?D22.9 - Melanocytic nevi, unspecified (ICD-10) Type 2 diabetes mellitus (05/23/24) ?E11.9 - Type 2 diabetes mellitus without complications (ICD-10) Prediabetes (05/2020) ?R73.03 - Prediabetes (ICD-10) 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) ?K76.0 - Fatty (change of) liver, not elsewhere classified (ICD-10) Morbid obesity with BMI of 40.0-44.9, adult ?E66.01 - Morbid (severe) obesity due to excess calories (ICD-10) ?Z68.41 - Body mass index [BMI] 40.0-44.9, adult (ICD-10) Vitamin D deficiency ?E55.9 - Vitamin D deficiency, unspecified (ICD-10) Recurrent herpes labialis ?B00.1 - Herpesviral vesicular dermatitis (ICD-10) Hypothyroidism ?E03.9 - Hypothyroidism, unspecified (ICD-10) Chronic low back pain ?M54.50 - Low back pain, unspecified (ICD-10) ?G89.29 - Other chronic pain (ICD-10) Hypertension ?I10 - Essential (primary) hypertension (ICD-10) Pericarditis (04/2018) ?I31.9 - Disease of pericardium, unspecified (ICD-10) Grief ?F43.21 - Adjustment disorder with depressed mood (ICD-10) Eczema ?L30.9 - Dermatitis, unspecified (ICD-10) Surgical History Hematoma (11/19/24) ?T14.8XXA - Other injury of unspecified body region, initial encounter (ICD-10) Hx of shoulder surgery (~06/2021) ?Z98.890 - Other specified postprocedural states (ICD-10) Status post wrist surgery (2014) ?Z98.890 - Other specified postprocedural states (ICD-10) History of total abdominal hysterectomy and bilateral salpingo-oophorectomy (2009) ?Z90.710 - Acquired absence of both cervix and uterus (ICD-10) ?Z90.722 - Acquired absence of ovaries, bilateral (ICD-10) ?Z90.79 - Acquired absence of other genital organ(s) (ICD-10) History of spinal surgery (2001) ?Z98.890 - Other specified postprocedural states (ICD-10) History of cardiac radiofrequency ablation (RFA) (2014) ?Z98.890 - Other specified postprocedural states (ICD-10) Family History Father Lymphoma, Onset Age: 81 Rheumatoid arthritis Mother Myocardial infarction, Onset Age: 82 Pancreatic cancer, Onset Age: 93 Maternal Grandfather Stroke, Onset Age: 80 Brother High blood pressure Sister High blood pressure Social History Narrative: , 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 3 adult children does not exercise life time nonsmoker rarely consumes alcohol What is your current living situation?: I presently have a place to live Problems where you live: no known problems In the past 12 months, utilities in danger of being shut off: no In past 12 months, lack of transportation kept you from medical appts, meetings, work, or getting things needed for daily living: no In the past 12 mos, have been you worried that your food would run out before you had money to buy more?: never true In the past 12 mos, the food you bought just didn't last and you didn't have money to buy more?: never true Smoking Status: Never smoker Do you use any of these nicotine containing products: None How often do you have a drink containing alcohol: monthly or less Alcohol type: beer and hard liquor How many standard drinks containing alcohol do you have on a typical day: 1 or 2 How often do you have six or more drinks on one occasion: Never AUDIT-C Alcohol total score: 1 Non-prescribed substance use: denies use Caffeine: No How often does anyone, including family, friends and others, physically hurt you: never How often does anyone, including family, friends and others, insult or talk down to you: never How often does anyone, including family, friends and others, threaten you with harm: never How often does anyone, including family, friends and others, scream or curse at you: never Are you using contraception or practicing any form of control: No Exam Narrative: Exam Narrative: Obese, well-developed patient in no acute distress. Alert and oriented. Answers questions appropriately. Mood and affect are appropriate. Thoughts are goal oriented and rational. No tangential or magical thinking noted. Patient speaks in full sentences without needing to catch her breath. HEENT: Normocephalic atraumatic. Pupils are equally round reactive to light. Extraocular muscles are intact. Conjunctivae are moist without any icterus noted. Moist mucous membranes. Cardiovascular: Heart is regular rate and rhythm S1 and S2 are present without any murmurs. Lungs: Clear to auscultation bilaterally no wheezes rhonchi or rales are appreciated. Patient takes deep breaths without any discomfort. Abdomen: Soft and nondistended with normal bowel sounds. Patient has right lower quadrant tenderness, no CVA tenderness. She also has some right upper quadrant tenderness. Extremities: Bilateral lower extremities are without edema. Skin: Well perfused without any obvious rashes. Posterior hematoma is mostly healed. Area that the drain was in place is healing appropriately. It is not tender. Const: Vital Signs, click to edit/add: Vital Signs - 24 hr 09/01/25 21:28 Temperature 98.8 F Pulse Rate [Pulse Oximeter] 83 Respiratory Rate 18 Blood Pressure [Ri ght Upper Arm] 191/106 H Pulse Oximetry 96 Oxygen Delivery Me thod Room Air Course Course ED Course: IV established patient is started on 1 L of normal saline, IV Zofran and Toradol. Blood work shows an unremarkable CBC, unremarkable chemistries, normal glucose. Normal lactate. Normal LFTs, normal lipase. CRP 1.6. UA shows 1+ protein, 2+ blood, 2+ leukocyte esterase, 2-5 RBCs, 10-[address] scan shows a 6 mm obstructing stone in the distal right ureter, causing severe hydronephrosis. After Toradol patient felt much better. We discussed pain management at home and seeing if this passes on its own patient felt comfortable with that. Vital Signs Vital signs: Initial Vital Signs Temperature 98.8 F 09/01/25 21:28 Temperature Source Temporal Artery Scan 09/01/25 21:28 Pulse Rate 83 09/01/25 21:28 Pulse Rhythm Regular 09/01/25 21:28 Respiratory Rate 18 09/01/25 21:28 Blood Pressure 191/106 H 09/01/25 21:28 Blood Pressure Mean 134 H 09/01/25 21:28 Blood Pressure Position Sitting 09/01/25 21:28 Pulse Oximetry 96 09/01/25 21:28 Oxygen Delivery Method Room Air 09/01/25 21:28 Vital Signs Temperature 98.8 F 09/01/25 21:28 Pulse Rate 83 09/01/25 21:28 Respiratory Rate 18 09/01/25 21:28 Blood Pressure 191/106 H 09/01/25 21:28 Pulse Oximetry 96 09/01/25 21:28 Oxygen Delivery Method Room Air 09/01/25 21:28 Temperature 98.8 F 09/01/25 21:28 Pulse Rate 83 09/01/25 21:28 Respiratory Rate 18 09/01/25 21:28 Blood Pressure 191/106 H 09/01/25 21:28 Pulse Oximetry 96 09/01/25 21:28 Oxygen Delivery Method Room Air 09/01/25 21:28 Medications Administered Medications: Discontinued Medications Generic Name Dose Route Start Last Admin Trade Name Freq PRN Reason Stop Dose Admin Sodium Chloride 1,000 mls @ 1,000 mls/hr 09/01/25 23:00 09/02/25 00:07 0.9 % Sodium Chloride 1000 Ml IV 09/01/25 23:59 1,000 mls/hr .Q1H TANG Administration Ketorolac Tromethamine 30 mg 09/01/25 22:49 09/02/25 00:07 Ketorolac 30 Mg/Ml Inj IVP 09/01/25 22:50 30 mg ONCE ONE Administration Ondansetron HCl 4 mg 09/01/25 22:49 09/02/25 00:07 Ondansetron 2 Mg/Ml Inj IVP 09/01/25 22:50 4 mg ONCE ONE Administration Medical Decision Making MDM Narrative Medical decision making narrative: 69-year-old female with a kidney stone and hydronephrosis. Patient will be sent home with Flomax and Toradol. We discussed reasons to return to the ED. Discussed straining her urine as patient has had kidney stones multiple times. Lab Data Lab results reviewed: Yes I reviewed the patient's lab results Labs: Lab Results 09/01/25 09/01/25 Range/Units 22:05 23:00 WBC 9.39 (4.50-11.00) K/uL RBC 4.53 (4.00-5.20) m/uL Hgb 13.0 (12.0-16.0) gm/dL Hct 40.7 (33.0-51.0) % MCV 90 (80-100) fL MCH 29 (26-34) pg MCHC 32 (32-36) gm/dL RDW Coeff of Brandon 13.3 (11.5-15.5) % Plt Count 198 (140-440) K/uL Neut % (Auto) 79.6 H (42.0-72.0) % Lymph % (Auto) 12.2 L (20-44) % [place] % (Auto) 6.5 (0.0-11.0) % Eos % (Auto) 0.6 (0.0-7.0) % Baso % (Auto) 0.2 (0.0-3.0) % Neut # (Auto) 7.50 H (1.7-7.0) K/uL Lymph # (Auto) 1.10 (0.90-2.90) K/uL [place] # (Auto) 0.60 (0.00-0.90) K/UL Eos # (Auto) 0.06 (0.00-0.50) K/uL Baso # (Auto) 0.02 (0.00-0.30) K/uL Abs Immat Gran (auto) 0.08 (0.00-0.30) K/uL Imm/Tot Granulo (auto) 0.9 % Sodium 139 (135-149) mmol/L Potassium 3.8 (3.6-5.1) mmol/L Chloride 99 (96-114) mmol/L Carbon Dioxide 29 (20-32) mmol/L Anion Gap 11 (7-15) mEq/L BUN 19 (7-30) mg/dL Creatinine 1.1 (0.5-1.5) mg/dL Estimated Creat Clear 45.82 Estimated GFR 55 ml/min Glucose 141 H (60-115) mg/dL Lactate 1.0 (0.5-1.9) mmol/L Calcium 9.5 (8.4-10.6) mg/dL Total Bilirubin 0.8 (0.1-1.5) mg/dL Direct Bilirubin 0.2 (0.0-0.5) mg/dL AST 28 (12-35) U/L ALT 27 (4-35) U/L Alkaline Phosphatase 64 (40-150) U/L C-Reactive Protein 1.6 H (0.5-1.0) mg/dL Total Protein 7.5 (6.0-8.3) g/dL Albumin 4.4 (3.3-5.0) g/dL Lipase 43 (23-300) U/L Urine Color Yellow (Yellow) Urine Appearance Cloudy A (Clear) Urine pH 6.0 (5.0-8.5) Ur Specific [place] 1.025 (1.000-1.030) Urine Protein 1+ A (Negative) Urine Glucose (UA) Negative (Negative) Urine Ketones Negative (Negative) Urine Blood 2+ A (Negative) Urine Nitrite Negative (Negative) Urine Bilirubin Negative (Negative) Urine Urobilinogen 0.2 (0.2-1.0) Ur Leukocyte Esterase 2+ A (Negative) Urine RBC 2-5 A (0-2) Urine WBC 10-25 A (0-5) Ur Squamous Epith Cells Few (None-Few) Amorphous Sediment Few A (None) Urine Bacteria Moderate A (None) Urine Mucus Few A (None) Imaging Data CT scan - abdomen: Attestation: I have reviewed the pertinent imaging results. Radiologist's impression: TECHNIQUE: CT abdomen and pelvis without contrast. COMPARISON: 08/12/2024. FINDINGS: Lower chest: Unremarkable. Liver: Normal in size and attenuation. No suspicious masses. Gallbladder and bile ducts: No stones or inflammation. No biliary dilatation. Pancreas: Unremarkable. No mass or inflammation. Spleen: Normal in size. No masses. Adrenal glands: Normal in size. No nodules. Kidneys: Obstructing 6 mm stone in the distal right ureter is on series 2, image 126. This is resulting in severe hydronephrosis. Several other punctate stones remain in the right kidney. No left-sided stones. GI tract: Unremarkable. Normal in caliber. No sign of mass or inflammation. Normal appendix. Vasculature: Abdominal aorta is normal in caliber. Lymph nodes: No lymphadenopathy. Peritoneum/Abdominal Wall: Unremarkable. No sign of mass or infiltration. No free air or significant free fluid. Pelvis: Unremarkable. No pelvic masses. Bones: Unremarkable for age. IMPRESSION: Obstructing 6 mm stone in the distal right ureter causing severe hydronephrosis. Discharge Plan Discharge Clinical Impression: Kidney stone Patient Disposition: Home, Self-Care Condition: Stable Instructions: Kidney Stones (ED), How to Strain Your Urine (ED) Additional Instructions: Use pain medication as needed/as prescribed. Use Flomax daily-this medicine helps to relax the muscles of the tubes that the stone is in, to help it pass. Strain your urine. Follow-up with your primary care provider to discuss testing the stone to see what it is made out of. Return to the emergency department if you develop pain that cannot be controlled or if you develop a fever. Twenty tablets of Toradol sent to [facility]. Flomax sent to pharmacy. Prescriptions: New tamsulosin 0.4 mg capsule 0.4 mg PO HS Qty: 30 2RF No Action lorazepam [Ativan] 0.5 mg tablet 0.5 - 1 mg PO ONCE PRN (Reason: anxiety) Qty: 2 0RF Rx Instructions: 1-2 tabs by mouth 1 -1.5 hours prior to MRI test ascorbic acid (vitamin C) 500 mg tablet 500 mg PO QDAY nystatin 100,000 unit/gram powder 1 applic topical .2-3x per day Qty: 60 0RF atenolol 25 mg tablet 25 mg PO QDAY Qty: 90 3RF levothyroxine 75 mcg tablet 75 mcg PO DAILY Qty: 90 3RF metformin 500 mg tablet extended release 24 hr 500 mg PO QPM Qty: 90 3RF cholecalciferol (vitamin D3) 125 mcg (5,000 unit) capsule 125 mcg PO QDAY Qty: 90 3RF tramadol 50 mg tablet 50 mg PO QHS PRN (Reason: pain) Qty: 90 0RF hydrocodone-acetaminophen 5-325 mg tablet 1 tab PO Q6H PRN (Reason: pain) Qty: 25 0RF valacyclovir 1 gram tablet 2,000 mg PO BID PRN (Reason: cold sores) Qty: 24 1RF Rx Instructions: take 2 tab po x1, then 2 tab in 12 h, use as needed for cold sores Follow Up/Referrals: Elsa Huntley MD [Primary Care Provider, Family Practice] Stand Alone Forms: [facility] Info Instructions
[2025-09-01 23:18] LABS: Lactate* 1.0 mmol/L (0.5-1.9)
[2025-09-01 23:21] LABS: Hematocrit* 40.7 % (33.0-51.0); Hemoglobin* 13.0 gm/dL (12.0-16.0); Immature Granulocytes Abs Auto 0.08 K/uL (0.00-0.30); Immature Granulocytes Pct Auto 0.9 %; Mean Corpuscular HGB Conc 32 gm/dL (32-36); Mean Corpuscular Hemoglobin 29 pg (26-34); Mean Corpuscular Volume 90 fL (80-100); RDW Coefficient of Variation % 13.3 % (11.5-15.5); Red Blood Count* 4.53 m/uL (4.00-5.20); White Blood Count* 9.39 K/uL (4.50-11.00)
[2025-09-01 23:24] LABS: Lymphocytes Absolute Auto 1.10 K/uL (0.90-2.90)
[2025-09-01 23:25] LABS: Slide Review Reflex No
[2025-09-01 23:33] LABS: Albumin* 4.4 g/dL (3.3-5.0); Chloride* 99 mmol/L (96-114); Potassium* 3.8 mmol/L (3.6-5.1); Sodium* 139 mmol/L (135-149)
[2025-09-01 23:36] LABS: Alanine Aminotransferase* 27 U/L (4-35); Alkaline Phosphatase* 64 U/L (40-150); Anion Gap 11 mEq/L (7-15); Aspartate Amino Transferase* 28 U/L (12-35); Bilirubin Direct* 0.2 mg/dL (0.0-0.5); Bilirubin Total* 0.8 mg/dL (0.1-1.5); Blood Urea Nitrogen* 19 mg/dL (7-30); Carbon Dioxide* 29 mmol/L (20-32); Creatinine* 1.1 mg/dL (0.5-1.5); Est. Creatinine Clearance* 45.82; Estimated Glomerular Filt Rate 55 ml/min; Total Protein* 7.5 g/dL (6.0-8.3)
[2025-09-01 23:37] LABS: Calcium* 9.5 mg/dL (8.4-10.6); Glucose* 141 mg/dL (60-115)
[2025-09-02] MEDS: ONDANSETRON 2 MG/ML inj 4 MG IVP (00:07)
== END 2025-09-02 01:21 | disposition home or self-care (01) ==
PROVIDERS: Emergency Provider Family Medicine; PCP Family Medicine
DX: N13.2 Hydronephrosis with renal and ureteral calculous obstruction (principal); Z87.442 Personal history of urinary calculi
CPT/HCPCS: 36415; 74176; 80048; 80076; 81001; 83605; 83690; 85025; 86140; 87086; 96361; 96374; 96375; 99284; 99285; J1885; J2405; J7030

== ENCOUNTER 2025-09-12 12:46 | Outpatient (CLI) | payer MEDICARE, SELFPAY | END 2025-09-12 12:47 | disposition home or self-care (01) | LOC: NFLDREF 09-19 06:42 | PROVIDERS: PCP Family Medicine; Referring Provider Family Medicine; Visit Provider Family Medicine | DX: N20.0 Calculus of kidney (principal) | CPT/HCPCS: 82365 ==